=== PATIENT | female | born 1975 | race Caucasian/White ===

== ENCOUNTER 2017-02-04 15:59 | Emergency (ER) | payer OTHER ==
[~2017-02-04 15:59] MED LIST: ANAS1TAB3 PO; CITA20TA9 PO; HYDR-79 PO; HYDR12.58 PO; ONDA8TAB12 PO; PHEN15CA PO; PRED20TA PO; SUMA100T3 PO
[2017-02-04] MEDS ORDERED: IV NORMAL SALINE 1,000ML 1,000 ML IV ONE (16:35)
[2017-02-04] MEDS ORDERED: diphenhydrAMINE 50 MG/ML VIAL IVP ONE (16:35)
[2017-02-04] MEDS ORDERED: METOCLOPRAMIDE HCL 10 MG/2 ML VIAL. IV ONE (16:35)
[2017-02-04] MEDS ORDERED: PROCHLORPERAZINE 10 MG/2 ML VIAL. IV ONE (16:45)
--- NOTE | 2017-02-04 17:06 | PHYS DOC ---
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 Patient states her headache was present when she woke up about 45 minutes ago. "It's gone beyond Aleve and Benadryl". Patient states "it's hurting so bad". The pain is behind her left eye. This headache is like migraine headaches she has had before. She has had a headache this severe in the past. Sometimes she is able to take oral meds at home but she didn't even try because she felt that they wouldn't help in this instance. Patient states once she came in and they gave her Imitrex and she had to be admitted because of the side effects of Imitrex. She's had nausea , no vomiting. 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 Review of Systems Review of Systems Constitutional: Denies fever or chills [] Eyes: Pain behind the left eye but no visual disturbance HENT: Denies nasal congestion or sore throat [] Respiratory: Denies cough or shortness of breath [] Cardiovascular: Denies chest pain GI: As in history of present illness : Denies dysuria or hematuria [] Musculoskeletal: Denies back pain or joint pain [] Integument: Denies rash or skin lesions [] Neurologic: As in history of present illness, denies focal neurologic complaints Current Medications Current Medications Current Medications Medications (Trade) Dose Ordered Sig/Gerry Start Time Stop Time Status Last Admin Dose Admin Diphenhydramine HCl (Benadryl) 25 mg 1X ONCE 02/04/17 16:35 02/04/17 16:36 DC Metoclopramide HCl (Reglan) 10 mg 1X ONCE 02/04/17 16:35 02/04/17 16:36 DC Prochlorperazine Edisylate (Compazine) 10 mg 1X ONCE 02/04/17 16:45 02/04/17 16:46 DC Sodium Chloride 1,000 ml @ 1,000 mls/hr 1X ONCE 02/04/17 16:35 02/04/17 17:34 Allergies Allergies Allergies Coded Allergies Type Severity Reaction Last Updated Verified Cephalosporins Allergy Severe Anaphylaxis 01/31/15 No Penicillins Allergy Severe Shortness of Air 01/31/15 No Sulfa (Sulfonamide Antibiotics) Allergy Severe Anaphylaxis 01/31/15 No bupropion Allergy Mild Anxiety 01/31/15 No Physical Exam Physical Exam Constitutional: Well developed, well nourished, no acute distress, non-toxic appearance. Alert, mentating normally. HENT: Normocephalic, atraumatic, bilateral external ears normal, nose normal. [ ] Eyes: conjunctiva normal, no discharge. [] Neck: Normal range of motion, no stridor. [] Cardiovascular:Heart rate regular rhythm, no murmur [] Lungs & Thorax: Bilateral breath sounds clear to auscultation [] Abdomen: Bowel sounds normal, soft, no tenderness, no masses, no pulsatile masses. [] Skin: Warm, dry, no erythema, no rash. [] Extremities: No tenderness, no cyanosis, no clubbing, ROM intact, no edema. [] Neurologic: Alert and oriented X 3, normal motor function, normal sensory function, no focal deficits noted. Fish Warden 5 over 5 and equal bilaterally, lower extremity strength 5 over 5 and equal bilaterally. Current Patient Data Vital Signs Vital Signs Date Time Temp Pulse Resp B/P (MAP) Pulse Ox O2 Delivery O2 Flow Rate FiO2 02/04/17 16:05 98.2 76 16 98 Room Air EKG EKG [] Radiology/Procedures Radiology/Procedures [] Course & Med Decision Making Course & Med Decision Making Pertinent Labs and Imaging studies reviewed. (See chart for details) 41-year-old female with a history of migraines presents with typical migraine pain although more severe than she sometimes has. This is not her worst headache. The headache is not thunderclap in onset, it was present when she woke up from sleeping. Patient appears nontoxic. We discussed the options. She would like to try my suggestion of an IV "cocktail" of Reglan, Compazine, and Benadryl. Patient did not get much relief from the above medications. We then gave her 1 mg of IV hydromorphone and she was discharged with her driving to go home and sleep. See instructions for plan. [] Dragon Disclaimer Dragon Disclaimer This chart was dictated in whole or in part using Voice Recognition software in a busy, high-work load, and often noisy Emergency Department environment. It may contain unintended and wholly unrecognized errors or omissions. Departure Departure: Impression: Primary Impression: Migraine headache Disposition: 01 HOME, SELF-CARE Condition: IMPROVED Referrals: MAYITO LASSITER MD (PCP) Patient Instructions: Migraine Headache, [id number] Additional Instructions: Today in the emergency department, you had a liter of normal saline, Reglan 10 mg, Compazine 10 mg, and Benadryl 25 mg. Go home and go to bed in a dark quiet room, try to sleep all night. No driving for 12 hours due to the medications you were given. If needed, you may take your home medications including Percocet and/or Aleve if the headache is not gone. Follow-up with your PCP or in emergency if not better or if worse. CHELA MITCHELL MD Feb 04, 2017 17:06
[2017-02-04] MEDS ORDERED: HYDROmorphone PF 1 MG/ML DISP.SYRIN IV ONE (17:35)
[2017-02-04 17:45] VITALS: BP 126/58
== END 2017-02-04 17:45 | disposition home or self-care (01) ==
LOC: ER 15:59
DX: G43.909 Migraine, unspecified, not intractable, without status migrainosus (principal); I10 Essential (primary) hypertension; Z88.1 Allergy status to other antibiotic agents; Z88.0 Allergy status to penicillin; Z88.2 Allergy status to sulfonamides; Z88.8 Allergy status to other drugs, medicaments and biological substances
CPT/HCPCS: 96361; 96374; 96375; 99284; J0780; J1170; J1200; J2765; J7030

== ENCOUNTER 2017-04-19 15:34 | Emergency (ER) | payer OTHER ==
[~2017-04-19] VITALS: Ht 167.6 cm; Wt 81.6 kg
[~2017-04-19 15:34] MED LIST changes: -PHEN15CA PO; +PHEN15CA2 PO
--- NOTE | 2017-04-19 15:37 | PHYS DOC ---
Past History Past Medical History: Cancer, Hypertension, Migraines, Other Past Surgical History: Cancer Surgery, Hysterectomy, Knee Replacement Alcohol Use: None Drug Use: None Adult General Chief Complaint Chief Complaint: migraine headache HPI HPI Patient is a 41 year old female who presents with states her typical migraine headache. She states it started earlier today it started having some left side of her head and radiates around the back of her scalp. She states she feels nauseated but she hasn't vomited. She has tried Benadryl Phenergan at home and to leads. She also took 1000 g of Tylenol this was all about 2 hours ago. She states that she did get Botox in her headaches are getting less frequent she's opened that she gets her next round Botox that they even improve. She denies any fevers, confusion, neck stiffness. Review of Systems Review of Systems Constitutional: Denies fever or chills [] Eyes: Denies change in visual acuity, redness, or eye pain [] HENT: Denies nasal congestion or sore throat [] Respiratory: Denies cough or shortness of breath [] Cardiovascular: No additional information not addressed in HPI [] GI: Denies abdominal pain, nausea, vomiting, bloody stools or diarrhea [] : Denies dysuria or hematuria [] Musculoskeletal: Denies back pain or joint pain [] Integument: Denies rash or skin lesions [] Neurologic: Denies focal weakness or sensory changes, positive for]headache, Endocrine: Denies polyuria or polydipsia [] Allergies Allergies Allergies Coded Allergies Type Severity Reaction Last Updated Verified Cephalosporins Allergy Severe Anaphylaxis 01/31/15 No Penicillins Allergy Severe Shortness of Air 01/31/15 No Sulfa (Sulfonamide Antibiotics) Allergy Severe Anaphylaxis 01/31/15 No bupropion Allergy Mild Anxiety 01/31/15 No Physical Exam Physical Exam Constitutional: Well developed, well nourished, no acute distress, non-toxic appearance. [] HENT: Normocephalic, atraumatic, bilateral external ears normal, oropharynx moist, no oral exudates, nose normal. [] Eyes: PERRLA, EOMI, conjunctiva normal, no discharge. [] Neck: Normal range of motion, no tenderness, supple, no stridor. [] Cardiovascular:Heart rate regular rhythm, no murmur [] Lungs & Thorax: Bilateral breath sounds clear to auscultation [] Abdomen: Bowel sounds normal, soft, no tenderness, no masses, no pulsatile masses. [] Skin: Warm, dry, no erythema, no rash. [] Back: No tenderness, no CVA tenderness. [] Extremities: No tenderness, no cyanosis, no clubbing, ROM intact, no edema. [] Neurologic: Alert and oriented X 3, normal motor function, normal sensory function, no focal deficits noted. [] Psychologic: Affect normal, judgement normal, mood normal. [] EKG EKG [] Radiology/Procedures Radiology/Procedures [] Impressions: Migraine headache Course & Med Decision Making Course & Med Decision Making Pertinent Labs and Imaging studies reviewed. (See chart for details) Patient received IV fluids and IV migraine cocktail and feels better now. She is requesting be discharged home. Return precautions given. She is agreeable to the plan and being discharged in stable condition at this time. Dragon Disclaimer Dragon Disclaimer This chart was dictated in whole or in part using Voice Recognition software in a busy, high-work load, and often noisy Emergency Department environment. It may contain unintended and wholly unrecognized errors or omissions. Departure Departure: Impression: Primary Impression: Migraine headache Disposition: 01 HOME, SELF-CARE Condition: STABLE Referrals: MAYITO LASSITER MD (PCP) Patient Instructions: Migraine Headache Additional Instructions: You were seen tonight for your migraine headache. You received IV fluids, IV medicines and you now feeling better. Your being discharged home. You can continue taking [id number] remedies. The sure to push fluids tonight. Return ER for worsening headache, confusion, neck stiffness, or other concerns. Problem Qualifiers Primary Impression: Migraine headache Migraine type: unspecified Status migrainosus presence: without status migrainosus Intractability: not intractable Qualified Codes: G43.909 - Migraine, unspecified, not intractable, without status migrainosus SURESH CLEMONS MD Apr 19, 2017 15:37
[2017-04-19] MEDS ORDERED: IV NORMAL SALINE 50ML 50 ML ONE (15:58)
[2017-04-19] MEDS ORDERED: PROMETHAZINE 25 MG/ML VIAL IV ONE (15:58)
[2017-04-19] MEDS ORDERED: PROMETHAZINE 12.5 MG in IV NORMAL SALINE 50ML 50 ML IV PRN (16:00)
[2017-04-19] MEDS ORDERED: IV NORMAL SALINE 1,000ML 1,000 ML IV ONE (16:00)
[2017-04-19] MEDS ORDERED: diphenhydrAMINE 50 MG/ML VIAL IVP ONE (16:00)
[2017-04-19] MEDS ORDERED: KETOROLAC 30 MG/ML VIAL. IV ONE (16:00)
[2017-04-19 17:28] VITALS: BP 122/78
== END 2017-04-19 17:37 | disposition home or self-care (01) ==
LOC: ER 15:34
DX: G43.909 Migraine, unspecified, not intractable, without status migrainosus (principal); I10 Essential (primary) hypertension; Z88.1 Allergy status to other antibiotic agents; Z88.0 Allergy status to penicillin; Z88.2 Allergy status to sulfonamides; Z88.8 Allergy status to other drugs, medicaments and biological substances
CPT/HCPCS: 96365; 96375; 99284; J1200; J1885; J2550; J7030

== ENCOUNTER 2017-05-10 23:10 | Emergency (ER) | payer OTHER ==
[~2017-05-10] VITALS: Ht 167.6 cm; Wt 84.7 kg
[2017-05-10] MEDS ORDERED: KETOROLAC 30 MG/ML VIAL. IV ONE (23:45)
[2017-05-10] MEDS ORDERED: METOCLOPRAMIDE HCL 10 MG/2 ML VIAL. IV ONE (23:45)
[2017-05-10] MEDS ORDERED: diphenhydrAMINE 50 MG/ML VIAL IVP ONE (23:45)
[2017-05-11] MEDS ORDERED: IV NORMAL SALINE 1,000ML 1,000 ML IV ONE
[2017-05-11] MEDS ORDERED: PROCHLORPERAZINE 10 MG/2 ML VIAL. IV ONE (00:45)
[2017-05-11] MEDS ORDERED: PROCHLORPERAZINE 10 MG/2 ML VIAL. ONE (00:48)
[2017-05-11 00:52] VITALS: BP 107/60
--- NOTE | 2017-05-11 04:34 | ED.ADGEN ---
Past History Past Medical History: Cancer, Diabetes, Hypertension, Migraines Past Surgical History: Hysterectomy, Other Alcohol Use: None Drug Use: None Adult General Chief Complaint Chief Complaint Migraine headache HPI HPI Patient is a 41-year-old female and history of frequent migraine headaches who presents with typical migraine headache starting several hours prior to ED arrival. Headache is described as left retro-orbital R, throbbing, rated moderate to severe and associated with nausea and vomiting. Patient took Advil and Tylenol prior to ED arrival with limited improvement. States she sees a neurologist and is scheduled for Botox. Last migraine was 2 weeks ago. Patient was seen in this same in the emergency department at that time. No fever, neck pain, stiffness, rash, extremity weakness or loss of sensation. No other acute symptoms or complaints.[] Review of Systems Review of Systems Review symptoms as per history of present illness. All other review symptoms are negative. Current Medications Current Medications Current Medications Medications (Trade) Dose Ordered Sig/Gerry Start Time Stop Time Status Last Admin Dose Admin Diphenhydramine HCl (Benadryl) 25 mg 1X ONCE 05/10/17 23:45 05/10/17 23:47 DC 05/10/17 23:51 25 MG Ketorolac Tromethamine (Toradol) 30 mg 1X ONCE 05/10/17 23:45 05/10/17 23:47 DC 05/10/17 23:52 30 MG Metoclopramide HCl (Reglan) 10 mg 1X ONCE 05/10/17 23:45 05/10/17 23:47 DC 05/10/17 23:52 10 MG Prochlorperazine Edisylate (Compazine) 10 mg STK-MED ONCE 05/11/17 00:48 05/11/17 00:57 DC Sodium Chloride 1,000 ml @ 1,000 mls/hr 1X ONCE 05/11/17 00:00 05/11/17 00:57 DC 05/10/17 23:52 1,000 MLS/HR Allergies Allergies Allergies Coded Allergies Type Severity Reaction Last Updated Verified Cephalosporins Allergy Severe Anaphylaxis 04/19/17 No Penicillins Allergy Severe Shortness of Air 04/19/17 No Sulfa (Sulfonamide Antibiotics) Allergy Severe Anaphylaxis 04/19/17 No bupropion Allergy Mild Anxiety 04/19/17 No sumatriptan Allergy Unknown 04/19/17 Yes Physical Exam Physical Exam Constitutional: Well developed, well nourished, no acute distress, non-toxic appearance. [] HENT: Normocephalic, atraumatic, bilateral external ears normal, oropharynx moist, no oral exudates, nose normal. [] Eyes: PERRLA, EOMI, conjunctiva normal, no discharge. [] Extremities: No tenderness, no cyanosis, no clubbing, ROM intact, no edema. [] Neurologic: Alert and oriented X 3, normal motor function, normal sensory function, no focal deficits noted. [] Psychologic: Affect normal, judgement normal, mood normal. [] Current Patient Data Vital Signs Vital Signs Date Time Temp Pulse Resp B/P (MAP) Pulse Ox O2 Delivery O2 Flow Rate FiO2 05/11/17 00:52 70 16 107/60 (76) 98 Room Air 05/10/17 23:10 98.1 EKG EKG [] Radiology/Procedures Radiology/Procedures [] Course & Med Decision Making Course & Med Decision Making Pertinent Labs and Imaging studies reviewed. (See chart for details) [No neurologic deficits. Typical migraine cocktail given with significant relief of symptoms.] Final Impression Final Impression [#1 migraine headache] Problems: Dragon Disclaimer Dragon Disclaimer This electronic medical record was generated, in whole or in part, using a voice recognition dictation system. MIREYA BARTON DO May 11, 2017 04:34
== END 2017-05-11 00:57 | disposition home or self-care (01) ==
LOC: ER 23:10
DX: G43.909 Migraine, unspecified, not intractable, without status migrainosus (principal); I10 Essential (primary) hypertension; E11.9 Type 2 diabetes mellitus without complications; Z88.1 Allergy status to other antibiotic agents; Z88.0 Allergy status to penicillin; Z88.2 Allergy status to sulfonamides; Z88.8 Allergy status to other drugs, medicaments and biological substances
CPT/HCPCS: 96361; 96374; 96375; 99284; J0780; J1200; J1885; J2765; J7030

== ENCOUNTER → 2017-05-22 | Outpatient (CLI) | payer OTHER ==
[2017-05-11 00:52] VITALS: BP 107/60
--- NOTE | 2017-05-22 11:36 | RAD ---
Indication: Right upper quadrant pain. Technique: Right upper quadrant ultrasound was performed. No comparison is available. Findings: Pancreas is obscured by bowel gas. IVC is patent. Aorta is obscured by bowel gas. There is diffuse increase in echogenicity of the liver without discrete lesion. Right hepatic lobe measures 15.0 cm in length. Gallbladder wall is thickened. There is no pericholecystic fluid or definite stone. Common bile duct is within normal limits at 2 mm. Right kidney is without hydronephrosis or mass. Impression: 1. Fatty infiltration of the liver. 2. Nonspecific gallbladder wall thickening. If there is concern for acalculous/chronic cholecystitis, consider hepatobiliary scintigraphy with ejection fraction.
== END | disposition home or self-care (01) ==
LOC: US 08:00
PROVIDERS: ATTEND Family Medicine
DX: K76.0 Fatty (change of) liver, not elsewhere classified (principal)
CPT/HCPCS: 76705

== ENCOUNTER 2018-08-19 07:12 | Emergency (ER) | payer OTHER ==
[~2018-08-19] VITALS: Ht 167.6 cm; Wt 81.6 kg
[~2018-08-19 07:12] MED LIST changes: -ANAS1TAB3 PO; +ANAS1TAB47 PO; +HYDR-1179 PO; -HYDR-79 PO
[2018-08-19 07:15] VITALS: BP 175/92
[2018-08-19] MEDS ORDERED: IV NORMAL SALINE 1,000ML 1,000 ML IV SCH (07:27)
[2018-08-19] MEDS ORDERED: KETOROLAC 30 MG/ML VIAL. IV ONE (07:45)
[2018-08-19] MEDS ORDERED: ONDANSETRON PF 4 MG/2 ML VIAL. IV ONE (07:45)
[2018-08-19] MEDS ORDERED: diphenhydrAMINE 50 MG/ML VIAL IVP ONE (07:45)
--- NOTE | 2018-08-19 07:51 | PHYS DOC ---
Past History Past Medical History: Cancer, Diabetes, Hypertension, Migraines Past Surgical History: Hysterectomy, Other Smoking: Non-smoker Alcohol Use: None Drug Use: None Adult General Chief Complaint Chief Complaint: HEADACHE HPI HPI Patient is a 42 year old female with history of migraine headache who presents with complaining of headache. Patient complaining of posterior headache since 1800 yesterday as a sharp pain with nausea and photophobia that getting suddenly severe for the last an hour. Patient state he took [id number] Tylenol without change of her pain. Patient states this is not like her usual migraine headache as a with radiation to her neck. She denies fever and chills, chest pain, shortness of breath, vomiting and abdominal pain, focal neuro deficit. Review of Systems Review of Systems Constitutional: Denies fever or chills [] Eyes: Denies change in visual acuity, redness, or eye pain [] HENT: Denies nasal congestion or sore throat [] Respiratory: Denies cough or shortness of breath [] Cardiovascular: No additional information not addressed in HPI [] GI: Denies abdominal pain, vomiting, bloody stools or diarrhea , reports nausea[ ] : Denies dysuria or hematuria [] Musculoskeletal: Denies back pain or joint pain [] Integument: Denies rash or skin lesions [] Neurologic: reports headache, denies focal weakness or sensory changes [] Endocrine: Denies polyuria or polydipsia [] All other systems were reviewed and found to be within normal limits, except as documented in this note. Current Medications Current Medications Current Medications Medications (Trade) Dose Ordered Sig/Gerry Start Time Stop Time Status Last Admin Dose Admin Diphenhydramine HCl (Benadryl) 50 mg 1X ONCE 08/19/18 07:45 08/19/18 07:46 DC Ketorolac Tromethamine (Toradol 30mg Vial) 30 mg 1X ONCE 08/19/18 07:45 08/19/18 07:46 DC Ondansetron HCl (Zofran) 4 mg 1X ONCE 08/19/18 07:45 08/19/18 07:46 DC Sodium Chloride 1,000 ml @ 1,000 mls/hr Q1H 08/19/18 07:27 08/19/18 08:26 Allergies Allergies Allergies Coded Allergies Type Severity Reaction Last Updated Verified Cephalosporins Allergy Severe Anaphylaxis 04/19/17 No Penicillins Allergy Severe Shortness of Air 04/19/17 No Sulfa (Sulfonamide Antibiotics) Allergy Severe Anaphylaxis 04/19/17 No bupropion Allergy Mild Anxiety 04/19/17 No sumatriptan Allergy Unknown 04/19/17 Yes Physical Exam Physical Exam Constitutional: Well developed, well nourished, moderate acute distress, non- toxic appearance. [] HENT: Normocephalic, atraumatic, bilateral external ears normal, oropharynx moist, no oral exudates, nose normal. [] Eyes: PERRLA, EOMI, conjunctiva normal, no discharge. [] Neck: Normal range of motion, no tenderness, supple, no stridor. [] Cardiovascular:Heart rate regular rhythm, no murmur [] Lungs & Thorax: Bilateral breath sounds clear to auscultation [] Abdomen: Bowel sounds normal, soft, no tenderness, no masses, no pulsatile masses. [] Skin: Warm, dry, no erythema, no rash. [] Back: No tenderness, no CVA tenderness. [] Extremities: No tenderness, no cyanosis, no clubbing, ROM intact, no edema. [] Neurologic: Alert and oriented X 3, normal motor function, normal sensory function, no focal deficits noted. [] Psychologic: Affect anxious, crying, judgement normal, mood normal. [] EKG EKG [] Radiology/Procedures Radiology/Procedures [] Course & Med Decision Making Course & Med Decision Making Pertinent Labs reviewed. (See chart for details) Evaluation of patient in ER showed 42-year-old female patient with history of migraine headache presented with severe migraine headache since yesterday. Patient had no neck rigidity and treated with IV fluid, Benadryl, throat of, Solu-Medrol and Zofran and her pain dropped from 10 to 5. Patient feels comfortable to go home and follow up with her physician. Patient has Zofran at home and prescription for Fiorinal was given. Dragon Disclaimer Dragon Disclaimer This electronic medical record was generated, in whole or in part, using a voice recognition dictation system. Departure Departure: Impression: Primary Impression: Migraine headache Additional Impressions: Nausea Photophobia Disposition: HOME, SELF-CARE (at 0912) Condition: IMPROVED Referrals: MAYITO LASSITER MD (PCP) Patient Instructions: Migraine Headache Additional Instructions: Drink plenty of liquids Follow-up with your primary care physician in 3-5 days Return to ER if not getting better Scripts Butalbital/Aspirin/Caffeine (FIORINAL 50-325-40 MG CAPSULE) 1 Each Capsule 1 EACH PO QID PRN for HEADACHE, #14 CAP Prov: PADMAJA BLAKE MD 08/19/18 Problem Qualifiers PADMAJA BLAKE MD Aug 19, 2018 07:51
[2018-08-19 08:15] LABS: BASO # 0.2 x10^3/uL (0.0-0.2); BASO % 2 % (0-3); EOS # 0.3 x10^3/uL (0.0-0.7); EOS % 3 % (0-3); HEMATOCRIT 41.6 % (36.0-47.0); LYMPH # 4.9 x10^3/uL (1.0-4.8); LYMPH % 47 % (24-48); MEAN CORPUSCULAR HEMOGLOBIN 30 pg (25-35); MEAN CORPUSCULAR HGB CONC 34 g/dL (31-37); MEAN CORPUSCULAR VOLUME 90 fL (79-100); MONO # 0.6 x10^3/uL (0.0-1.1); MONO % 6 % (0-9); NEUT # 4.5 x10^3uL (1.8-7.7); NEUT % 43 % (31-73); PLATELET COUNT 371 x10^3/uL (140-400); RED BLOOD COUNT 4.63 x10^6/uL (3.50-5.40); RED CELL DISTRIBUTION WIDTH 13.1 % (11.5-14.5); WHITE BLOOD COUNT 10.5 x10^3/uL (4.0-11.0)
[2018-08-19 08:26] LABS: CALCIUM 9.3 mg/dL (8.5-10.1); CREATININE 0.6 mg/dL (0.6-1.0); GFR 110.7; POTASSIUM 3.6 mmol/L (3.5-5.1)
[2018-08-19] MEDS ORDERED: methylPREDNISolone SOD SUCC PF 125 MG/2 ML VIAL. IV ONE (08:30)
[2018-08-19] MEDS ORDERED: BUTA1CAP31 PO (09:15)
== END 2018-08-19 08:00 | disposition home or self-care (01) ==
LOC: ER 07:12
DX: G43.909 Migraine, unspecified, not intractable, without status migrainosus (principal); E11.9 Type 2 diabetes mellitus without complications; I10 Essential (primary) hypertension; Z88.1 Allergy status to other antibiotic agents; Z88.0 Allergy status to penicillin; Z88.2 Allergy status to sulfonamides; Z88.8 Allergy status to other drugs, medicaments and biological substances
CPT/HCPCS: 36415; 80048; 85025; 96374; 96375; 99283; G0480; J1200; J1885; J2405; J2930; J7030

== ENCOUNTER → 2018-09-12 | Outpatient (CLI) | payer OTHER ==
[2018-08-19 07:15] VITALS: BP 175/92
[~2018-09-12] MED LIST changes: +BUTA1CAP31 PO; +MELO7.5T29 PO; +METO10TA81 PO
[2018-09-12 09:00] LABS: HEMATOCRIT 40.1 % (36.0-47.0); HEMOGLOBIN 13.7 g/dL (12.0-15.5); RED BLOOD COUNT 4.43 x10^6/uL (3.50-5.40); RED CELL DISTRIBUTION WIDTH 13.3 % (11.5-14.5); WHITE BLOOD COUNT 9.1 x10^3/uL (4.0-11.0)
[2018-09-12 09:21] LABS: ALBUMIN 3.6 g/dL (3.4-5.0); ALBUMIN/GLOBULIN RATIO 1.2 (1.0-1.7); CALCIUM 8.9 mg/dL (8.5-10.1); CREATININE 0.7 mg/dL (0.6-1.0); GFR 92.7; POTASSIUM 3.6 mmol/L (3.5-5.1); TOTAL BILIRUBIN 0.2 mg/dL (0.2-1.0); TOTAL PROTEIN 6.7 g/dL (6.4-8.2)
[2018-09-12 20:42] LABS: THYROID STIM HORMONE (TSH) 1.706 uIU/mL (0.358-3.740)
== END | disposition home or self-care (01) ==
LOC: LAB 08:13
PROVIDERS: ATTEND Family Medicine
DX: I10 Essential (primary) hypertension (principal); E78.2 Mixed hyperlipidemia; E11.9 Type 2 diabetes mellitus without complications
CPT/HCPCS: 36415; 80053; 80061; 82043; 83036; 84443; 85027

== ENCOUNTER 2018-12-18 07:11 | Emergency (ER) | payer OTHER ==
[~2018-12-18] VITALS: Ht 167.6 cm; Wt 79.4 kg
[~2018-12-18 07:11] MED LIST changes: -MELO7.5T29 PO; -METO10TA81 PO
[2018-12-18 07:20] VITALS: BP 122/95
[2018-12-18] MEDS ORDERED: KETOROLAC 15 MG/ML VIAL. IV ONE (07:30)
[2018-12-18] MEDS ORDERED: diphenhydrAMINE 50 MG/ML VIAL IVP ONE (07:30)
[2018-12-18] MEDS ORDERED: METOCLOPRAMIDE HCL 10 MG/2 ML VIAL. IV ONE (07:30)
--- NOTE | 2018-12-18 07:38 | PHYS DOC ---
Past History Past Medical History: Cancer, Diabetes, Hypertension, Migraines Past Surgical History: Hysterectomy, Other Smoking: Non-smoker Alcohol Use: None Drug Use: None Adult General Chief Complaint Chief Complaint: HEADACHE HPI HPI Patient is a 43 year old female presents complaining of a headache over her left eye. This is her usual migraine. This started last night. She has photophobia and phonophobia. Some nausea, no vomiting. Not worst headache of life. No fever. No neck stiffness or vision changes. She tried to make it home from working an overnight shift but was unable to make it home due to the discomfort. Sleep usually works for the discomfort along with antiemetics and IV NSAIDs.[] Review of Systems Review of Systems Constitutional: Denies fever or chills [] Eyes: Denies change in visual acuity, redness, or eye pain [] HENT: Denies nasal congestion or sore throat [] Respiratory: Denies cough or shortness of breath [] Cardiovascular: No chest pain or palpitations[] GI: Denies abdominal pain, nausea, vomiting, bloody stools or diarrhea [] : Denies dysuria or hematuria [] Musculoskeletal: Denies back pain or joint pain [] Integument: Denies rash or skin lesions [] Neurologic: Denies focal weakness or sensory changes [] Endocrine: Denies polyuria or polydipsia [] All other systems were reviewed and found to be within normal limits, except as documented in this note. Current Medications Current Medications Current Medications Medications (Trade) Dose Ordered Sig/Gerry Start Time Stop Time Status Last Admin Dose Admin Diphenhydramine HCl (Benadryl) 50 mg 1X ONCE 12/18/18 07:30 12/18/18 07:31 UNV Allergies Allergies Allergies Coded Allergies Type Severity Reaction Last Updated Verified Cephalosporins Allergy Severe Anaphylaxis 04/19/17 No Penicillins Allergy Severe Shortness of Air 04/19/17 No Sulfa (Sulfonamide Antibiotics) Allergy Severe Anaphylaxis 04/19/17 No bupropion Allergy Mild Anxiety 04/19/17 No sumatriptan Allergy Unknown 04/19/17 Yes Physical Exam Physical Exam Constitutional: Well developed, well nourished, mild to moderate discomfort, non-toxic appearance. [] HENT: Normocephalic, atraumatic, bilateral external ears normal, oropharynx moist, no oral exudates, nose normal. [] Eyes: PERRLA, EOMI, conjunctiva normal, no discharge. [] Neck: Normal range of motion, no tenderness, supple, no stridor. [] Cardiovascular:Heart rate regular rhythm, no murmur [] Lungs & Thorax: Bilateral breath sounds clear to auscultation [] Abdomen: Not examined. [] Skin: Warm, dry, no erythema, no rash. [] Back: No tenderness, no CVA tenderness. [] Extremities: No tenderness, no cyanosis, no clubbing, ROM intact, no edema. [] Neurologic: Alert and oriented X 3, normal motor function, normal sensory function, no focal deficits noted. [] Psychologic: Affect normal, judgement normal, mood normal. [] EKG EKG [] Radiology/Procedures Radiology/Procedures [] Course & Med Decision Making Course & Med Decision Making Pertinent Labs and Imaging studies reviewed. (See chart for details) ED course: Patient arrived, was placed in bed, and tolerated exam well. She was given medication which had her resting much more comfortably. She was discharged in improved condition with all questions answered. Medical decision making: There is no evidence of stroke, meningitis, encephalitis, no evidence of mass or bleed.[] Dragon Disclaimer Dragon Disclaimer This electronic medical record was generated, in whole or in part, using a voice recognition dictation system. Departure Departure: Impression: Primary Impression: Migraine Disposition: 01 HOME, SELF-CARE Condition: IMPROVED Referrals: MAYITO LASSITER MD (PCP) Follow-up in 2 days Patient Instructions: Migraine Headache Additional Instructions: Follow-up with your regular physician in 2 days. At the onset of your neck migraine headache try using 1/4 teaspoon of steve dissolved in either water or apple juice. Return to the ER if worsening discomfort or any other concerns. Scripts Metoclopramide Hcl (REGLAN) 10 Mg Tablet 10 MG PO QID for nausea and vomiting, #30 TAB Prov: YANIRA HANNA DO 12/18/18 Meloxicam (MELOXICAM) 7.5 Mg Tablet 7.5 MG PO DAILY for PAIN, #20 TAB Prov: YANIRA HANNA DO 12/18/18 Problem Qualifiers Primary Impression: Migraine Migraine type: unspecified Status migrainosus presence: without status migrainosus Intractability: not intractable Qualified Codes: G43.909 - Migraine, unspecified, not intractable, without status migrainosus YANIRA HANNA DO Dec 18, 2018 07:38
[2018-12-18] MEDS ORDERED: MELO7.5T29 PO (08:17)
[2018-12-18] MEDS ORDERED: METO10TA81 PO (08:17)
== END 2018-12-18 08:45 | disposition home or self-care (01) ==
LOC: ER 07:11
DX: G43.909 Migraine, unspecified, not intractable, without status migrainosus (principal); E11.9 Type 2 diabetes mellitus without complications; I10 Essential (primary) hypertension; Z88.1 Allergy status to other antibiotic agents; Z88.0 Allergy status to penicillin; Z88.2 Allergy status to sulfonamides; Z88.8 Allergy status to other drugs, medicaments and biological substances
CPT/HCPCS: 96374; 96375; 99284; J1200; J1885; J2765

== ENCOUNTER 2019-02-02 21:21 | Emergency (ER) | payer OTHER ==
[~2019-02-02] VITALS: Ht 167.6 cm; Wt 84.7 kg
[~2019-02-02 21:21] MED LIST changes: +MELO7.5T29 PO; +METO10TA81 PO
--- NOTE | 2019-02-02 21:31 | ED.ADGEN ---
Past History Past Medical History: Cancer, Diabetes, Hypertension, Migraines Past Surgical History: Hysterectomy, Other Smoking: Non-smoker Alcohol Use: None Drug Use: None Adult General Chief Complaint Chief Complaint ".. I am on vacation.. I don't know what going. ...on I got dizzy.. hot .. and sweaty....".." I did work a full shift last night... 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 Pt. does have one previous episode in past with similar presentation. Patient has a history of diabetes, hypertension and cholesterol, breast cancer with bilateral mastectomy in 2016. Patient denies any specific ill contacts. Recent travel to [place] on vacation. . No history of trauma. Patient compliant with medications. No history of bad food intake. No history of tarry stools. Patient normally follows with Dr. Hicks and Dr. Bailey. Review of Systems Review of Systems Constitutional: Denies fever or chills [] Eyes: Denies change in visual acuity, redness, or eye pain [] HENT: Denies nasal congestion or sore throat [] Respiratory: Denies cough or shortness of breath [] Cardiovascular: No additional information not addressed in HPI [] GI: Denies abdominal pain, , vomiting, bloody stools or diarrhea []Some complaints of nausea. : Denies dysuria or hematuria [] Musculoskeletal: Denies back pain or joint pain [] Integument: Denies rash or skin lesions [] Neurologic: Denies headache, focal weakness or sensory changes. Complaints of []dizzy Endocrine: Denies polyuria or polydipsia [] All other systems were reviewed and found to be within normal limits, except as documented in this note. Family History Family History Noncontributory Current Medications Current Medications Current Medications Medications (Trade) Dose Ordered Sig/Gerry Start Time Stop Time Status Last Admin Dose Admin Ondansetron HCl (Zofran) 8 mg 1X ONCE 02/02/19 22:00 02/02/19 22:04 DC 02/02/19 22:57 8 MG Sodium Chloride 1,000 ml @ 100 mls/hr Q10H 02/02/19 22:00 02/03/19 01:43 DC 02/02/19 22:56 100 MLS/HR Allergies Allergies Allergies Coded Allergies Type Severity Reaction Last Updated Verified Cephalosporins Allergy Severe Anaphylaxis 04/19/17 No Penicillins Allergy Severe Shortness of Air 04/19/17 No Sulfa (Sulfonamide Antibiotics) Allergy Severe Anaphylaxis 04/19/17 No bupropion Allergy Mild Anxiety 04/19/17 No sumatriptan Allergy Unknown 04/19/17 Yes Physical Exam Physical Exam Constitutional: Moderate acute distress, non-toxic appearance. [] HENT: Normocephalic, atraumatic, bilateral external ears normal, oropharynx moist, no oral exudates, nose normal. [] Eyes: PERRLA, EOMI, conjunctiva normal, no discharge. [] Neck: Normal range of motion, no tenderness, supple, no stridor. [] No bruit. Cardiovascular:Heart rate regular rhythm, no murmur [] Lungs & Thorax: Bilateral breath sounds equal apex on auscultation []bilateral mastectomy scars Abdomen: Bowel sounds normal, soft, no tenderness, no masses, no pulsatile masses. [] Surgery scars cholecystectomy and hysterectomy Skin: Warm, dry, no erythema, no rash. [] Tattoos Back: No tenderness, no CVA tenderness. [] Extremities: No tenderness, no cyanosis, no clubbing, ROM intact, no edema. [] Neurologic: Alert and oriented X 3, normal motor function, normal sensory function, no focal deficits noted. []DTRs +2 patella and brachial. 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 No drift. Distal vibratory intact. Air-conduction more than bone conduction some slight lateralization on bone conduction to left ear. Pt. ambulatory without problems. Psychologic: Affect anxious, judgement normal, mood normal. [] Current Patient Data Vital Signs Vital Signs Date Time Temp Pulse Resp B/P (MAP) Pulse Ox O2 Delivery O2 Flow Rate FiO2 02/03/19 00:55 64 20 119/70 (86) 99 Room Air 02/02/19 21:30 98.3 Lab Results Laboratory Tests Test 02/02/19 21:30 02/02/19 22:15 Urine Collection Type Unknown Urine Color Yellow Urine Clarity Clear Urine pH 7.0 Urine Specific Hildreth 1.010 Urine Protein Neg (NEG-TRACE) Urine Glucose (UA) Neg mg/dL (NEG) Urine Ketones (Stick) Neg mg/dL (NEG) Urine Blood Small (NEG) Urine Nitrite Neg (NEG) Urine Bilirubin Neg (NEG) Urine Urobilinogen Dipstick 0.2 mg/dL (0.2 mg/dL) Urine Leukocyte Esterase Neg (NEG) Urine RBC 1-2 /HPF (0-2) Urine WBC Occ /HPF (0-4) Urine Squamous Epithelial Cells Occ /LPF Urine Bacteria 0 /HPF (0-FEW) Urine Opiates Screen Neg (NEG) Urine Methadone Screen Neg (NEG) Urine Barbiturates Neg (NEG) Urine Phencyclidine Screen Neg (NEG) Urine Amphetamine/Methamphetamine Neg (NEG) Urine Benzodiazepines Screen Neg (NEG) Urine Cocaine Screen Neg (NEG) Urine Cannabinoids Screen Neg (NEG) Urine Ethyl Alcohol Neg (NEG) White Blood Count 14.3 x10^3/uL (4.0-11.0) H Red Blood Count 4.60 x10^6/uL (3.50-5.40) Hemoglobin 14.3 g/dL (12.0-15.5) Hematocrit 42.9 % (36.0-47.0) Mean Corpuscular Volume 93 fL (79-100) Mean Corpuscular Hemoglobin 31 pg (25-35) Mean Corpuscular Hemoglobin Concent 33 g/dL (31-37) Red Cell Distribution Width 13.0 % (11.5-14.5) Platelet Count 370 x10^3/uL (140-400) Neutrophils (%) (Auto) 69 % (31-73) Lymphocytes (%) (Auto) 25 % (24-48) Monocytes (%) (Auto) 5 % (0-9) Eosinophils (%) (Auto) 0 % (0-3) Basophils (%) (Auto) 0 % (0-3) Neutrophils # (Auto) 9.9 x10^3uL (1.8-7.7) H Lymphocytes # (Auto) 3.6 x10^3/uL (1.0-4.8) Monocytes # (Auto) 0.7 x10^3/uL (0.0-1.1) Eosinophils # (Auto) 0.1 x10^3/uL (0.0-0.7) Basophils # (Auto) 0.1 x10^3/uL (0.0-0.2) Erythrocyte Sedimentation Rate 11 (0-25) Prothrombin Time 9.4 SEC (9.4-11.4) Prothrombin Time INR 0.9 (0.9-1.1) PTT 27 SEC (23-33) D-Dimer (Ileana) < 0.19 mg/L (0.00-0.50) Sodium Level 140 mmol/L (136-145) Potassium Level 3.9 mmol/L (3.5-5.1) Chloride Level 99 mmol/L (98-107) Carbon Dioxide Level 29 mmol/L (21-32) Anion Gap 12 (6-14) Blood Urea Nitrogen 5 mg/dL (7-20) L Creatinine 0.7 mg/dL (0.6-1.0) Estimated GFR (Cockcroft-Gault) 92.2 Glucose Level 108 mg/dL (70-99) H Calcium Level 10.1 mg/dL (8.5-10.1) Magnesium Level 1.9 mg/dL (1.8-2.4) Total Bilirubin 0.3 mg/dL (0.2-1.0) Direct Bilirubin 0.1 mg/dL (0.0-0.2) Aspartate Amino Transferase (AST) 15 U/L (15-37) Alanine Aminotransferase (ALT) 25 U/L (14-59) Alkaline Phosphatase 104 U/L (46-116) Creatine Kinase 60 U/L (26-192) Troponin I Quantitative < 0.017 ng/mL (0-0.055) HM-Sqd-S-Type Natriuretic Peptide 38 pg/mL (0-124) Total Protein 7.3 g/dL (6.4-8.2) Albumin 4.2 g/dL (3.4-5.0) Lipase 76 U/L (73-393) EKG EKG My interpretation EKG shows a sinus rhythm at 64. Some axis deviation and anterior septal changes. No findings acute STEMI of contralateral changes.[] Radiology/Procedures Radiology/Procedures [][address] [address] IMAGING REPORT Signed PATIENT: TAI HAUSER ACCOUNT: [id number] : 1975 LOCATION: ER AGE: 43 SEX: F EXAM STATUS: REG ER ORD. PHYSICIAN: OLAYINKA HEREDIA MD REASON: dizzy PROCEDURE: CT HEAD WO CONTRAST EXAM: CT Head without IV contrast CLINICAL HISTORY: Dizziness COMPARISON: 08/27/2016 TECHNIQUE: Routine CT of the head without contrast. Soft tissues and bone windows were reviewed. PQRS compliance statement - One or more of the following individualized dose reduction techniques were utilized for this study: 1. Automated exposure control 2. Adjustment of the mA and/or kV according to patient size 3. Use of iterative reconstruction technique FINDINGS: There is no evidence of hemorrhage, mass or extra-axial fluid collection. Galvin-white differentiation is maintained with no evidence of edema. There is no mass effect or shift of the intracranial structures. The ventricles, basilar cisterns and cortical sulci are normal in size and configuration for the patients stated age. The cerebellum and brainstem are unremarkable. The calvarium demonstrates no evidence of fracture or focal lesion. There is normal aeration of the visualized paranasal sinuses and mastoid air cells. The visualized portions of the orbits are normal. IMPRESSION: No evidence for acute intracranial process. Electronically signed by: Beto Power MD (02/02/2019 11:12 PM) [facility] DICTATED AND SIGNED BY: BETO POWER MD DATE: 02/02/19 3705 CC: OLAYINKA HEREDIA MD; MAYITO HICKS MD ~ Course & Med Decision Making Course & Med Decision Making Pertinent Labs and Imaging studies reviewed. (See chart for details) Pt. elects not to be admitted. States will follow up with primary. Declines spinal tap. Exhibit UCAR capacity. Seem aware of risks. Must follow up. [] Final Impression Final Impression 1. Dizzy[] 2. Leukocytosis 3. Migraine Variant 4. DM Dragon Disclaimer Dragon Disclaimer This electronic medical record was generated, in whole or in part, using a voice recognition dictation system. Discharge Summary Visit Information Final Diagnosis Problems Medical Problems: (1) Dizzy Status: Acute Brief Hospital Course Allergies Allergies Coded Allergies Type Severity Reaction Last Updated Verified Cephalosporins Allergy Severe Anaphylaxis 04/19/17 No Penicillins Allergy Severe Shortness of Air 04/19/17 No Sulfa (Sulfonamide Antibiotics) Allergy Severe Anaphylaxis 04/19/17 No bupropion Allergy Mild Anxiety 04/19/17 No sumatriptan Allergy Unknown 04/19/17 Yes Vital Signs Vital Signs Date Time Temp Pulse Resp B/P (MAP) Pulse Ox O2 Delivery O2 Flow Rate FiO2 02/03/19 00:55 64 20 119/70 (86) 99 Room Air 02/02/19 21:30 98.3 Lab Results Laboratory Tests Test 02/02/19 21:30 02/02/19 22:15 Urine Collection Type Unknown Urine Color Yellow Urine Clarity Clear Urine pH 7.0 Urine Specific Hildreth 1.010 Urine Protein Neg (NEG-TRACE) Urine Glucose (UA) Neg mg/dL (NEG) Urine Ketones (Stick) Neg mg/dL (NEG) Urine Blood Small (NEG) Urine Nitrite Neg (NEG) Urine Bilirubin Neg (NEG) Urine Urobilinogen Dipstick 0.2 mg/dL (0.2 mg/dL) Urine Leukocyte Esterase Neg (NEG) Urine RBC 1-2 /HPF (0-2) Urine WBC Occ /HPF (0-4) Urine Squamous Epithelial Cells Occ /LPF Urine Bacteria 0 /HPF (0-FEW) Urine Opiates Screen Neg (NEG) Urine Methadone Screen Neg (NEG) Urine Barbiturates Neg (NEG) Urine Phencyclidine Screen Neg (NEG) Urine Amphetamine/Methamphetamine Neg (NEG) Urine Benzodiazepines Screen Neg (NEG) Urine Cocaine Screen Neg (NEG) Urine Cannabinoids Screen Neg (NEG) Urine Ethyl Alcohol Neg (NEG) White Blood Count 14.3 x10^3/uL (4.0-11.0) Red Blood Count 4.60 x10^6/uL (3.50-5.40) Hemoglobin 14.3 g/dL (12.0-15.5) Hematocrit 42.9 % (36.0-47.0) Mean Corpuscular Volume 93 fL (79-100) Mean Corpuscular Hemoglobin 31 pg (25-35) Mean Corpuscular Hemoglobin Concent 33 g/dL (31-37) Red Cell Distribution Width 13.0 % (11.5-14.5) Platelet Count 370 x10^3/uL (140-400) Neutrophils (%) (Auto) 69 % (31-73) Lymphocytes (%) (Auto) 25 % (24-48) Monocytes (%) (Auto) 5 % (0-9) Eosinophils (%) (Auto) 0 % (0-3) Basophils (%) (Auto) 0 % (0-3) Neutrophils # (Auto) 9.9 x10^3uL (1.8-7.7) Lymphocytes # (Auto) 3.6 x10^3/uL (1.0-4.8) Monocytes # (Auto) 0.7 x10^3/uL (0.0-1.1) Eosinophils # (Auto) 0.1 x10^3/uL (0.0-0.7) Basophils # (Auto) 0.1 x10^3/uL (0.0-0.2) Erythrocyte Sedimentation Rate 11 (0-25) Prothrombin Time 9.4 SEC (9.4-11.4) Prothromb Time International Ratio 0.9 (0.9-1.1) Activated Partial Thromboplast Time 27 SEC (23-33) D-Dimer (Ileana) < 0.19 mg/L (0.00-0.50) Sodium Level 140 mmol/L (136-145) Potassium Level 3.9 mmol/L (3.5-5.1) Chloride Level 99 mmol/L (98-107) Carbon Dioxide Level 29 mmol/L (21-32) Anion Gap 12 (6-14) Blood Urea Nitrogen 5 mg/dL (7-20) Creatinine 0.7 mg/dL (0.6-1.0) Estimated GFR (Cockcroft-Gault) 92.2 Glucose Level 108 mg/dL (70-99) Calcium Level 10.1 mg/dL (8.5-10.1) Magnesium Level 1.9 mg/dL (1.8-2.4) Total Bilirubin 0.3 mg/dL (0.2-1.0) Direct Bilirubin 0.1 mg/dL (0.0-0.2) Aspartate Amino Transf (AST/SGOT) 15 U/L (15-37) Alanine Aminotransferase (ALT/SGPT) 25 U/L (14-59) Alkaline Phosphatase 104 U/L (46-116) Creatine Kinase 60 U/L (26-192) Troponin I Quantitative < 0.017 ng/mL (0-0.055) IK-Zuo-F-Type Natriuretic Peptide 38 pg/mL (0-124) Total Protein 7.3 g/dL (6.4-8.2) Albumin 4.2 g/dL (3.4-5.0) Lipase 76 U/L (94-421) Brief Hospital Course 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 Discharge Information Condition at Discharge: Improved, Stable Disposition/Orders: D/C to Home Dischare Medications Current Medications Sodium Chloride 1,000 ml @ 100 mls/hr Q10H IV Last administered on 02/02/19at 22:56; Admin Dose 100 MLS/HR; Start 02/02/19 at 22:00; Stop 02/03/19 at 01:43; Status DC Ondansetron HCl (Zofran) 8 mg 1X ONCE IV Last administered on 02/02/19at 22:57; Admin Dose 8 MG; Start 02/02/19 at 22:00; Stop 02/02/19 at 22:04; Status DC Active Scripts Active Fiorinal 50-325-40 Mg Capsule (Butalbital/Aspirin/Caffeine) 1 Each Capsule 1 Each PO QID PRN Reported Metformin Hcl 1,000 Mg Tablet 1,000 Mg PO BID Escitalopram Oxalate 20 Mg Tablet 20 Mg PO DAILY Phentermine Hcl 37.5 Mg Capsule 37.5 Mg PO DAILY PRN Klonopin (Clonazepam) 1 Mg Tablet 1 Mg PO PRN PRN Arimidex (Anastrozole) 1 Mg Tablet 1 Mg PO DAILY LAST DOSE GIVEN: DATE: TODAY TIME: AM NEXT DOSE DUE: DATE: TOMORROW TIME: AM Hydrochlorothiazide Tablet (Hydrochlorothiazide) 12.5 Mg Tablet 12.5 Mg PO DAILY LAST DOSE GIVEN: DATE: TODAY TIME: AM NEXT DOSE DUE: DATE: TOMORROW TIME: AM Discharge Summary Visit Information Final Diagnosis Problems Medical Problems: (1) Dizzy Status: Acute Brief Hospital Course Allergies Allergies Coded Allergies Type Severity Reaction Last Updated Verified Cephalosporins Allergy Severe Anaphylaxis 04/19/17 No Penicillins Allergy Severe Shortness of Air 04/19/17 No Sulfa (Sulfonamide Antibiotics) Allergy Severe Anaphylaxis 04/19/17 No bupropion Allergy Mild Anxiety 04/19/17 No sumatriptan Allergy Unknown 04/19/17 Yes Vital Signs Vital Signs Date Time Temp Pulse Resp B/P (MAP) Pulse Ox O2 Delivery O2 Flow Rate FiO2 02/03/19 00:55 64 20 119/70 (86) 99 Room Air 02/02/19 21:30 98.3 Lab Results Laboratory Tests Test 02/02/19 21:02/02/19 22:15 Urine Collection Type Unknown Urine Color Yellow Urine Clarity Clear Urine pH 7.0 Urine Specific Hildreth 1.010 Urine Protein Neg (NEG-TRACE) Urine Glucose (UA) Neg mg/dL (NEG) Urine Ketones (Stick) Neg mg/dL (NEG) Urine Blood Small (NEG) Urine Nitrite Neg (NEG) Urine Bilirubin Neg (NEG) Urine Urobilinogen Dipstick 0.2 mg/dL (0.2 mg/dL) Urine Leukocyte Esterase Neg (NEG) Urine RBC 1-2 /HPF (0-2) Urine WBC Occ /HPF (0-4) Urine Squamous Epithelial Cells Occ /LPF Urine Bacteria 0 /HPF (0-FEW) Urine Opiates Screen Neg (NEG) Urine Methadone Screen Neg (NEG) Urine Barbiturates Neg (NEG) Urine Phencyclidine Screen Neg (NEG) Urine Amphetamine/Methamphetamine Neg (NEG) Urine Benzodiazepines Screen Neg (NEG) Urine Cocaine Screen Neg (NEG) Urine Cannabinoids Screen Neg (NEG) Urine Ethyl Alcohol Neg (NEG) White Blood Count 14.3 x10^3/uL (4.0-11.0) Red Blood Count 4.60 x10^6/uL (3.50-5.40) Hemoglobin 14.3 g/dL (12.0-15.5) Hematocrit 42.9 % (36.0-47.0) Mean Corpuscular Volume 93 fL (79-100) Mean Corpuscular Hemoglobin 31 pg (25-35) Mean Corpuscular Hemoglobin Concent 33 g/dL (31-37) Red Cell Distribution Width 13.0 % (11.5-14.5) Platelet Count 370 x10^3/uL (140-400) Neutrophils (%) (Auto) 69 % (31-73) Lymphocytes (%) (Auto) 25 % (24-48) Monocytes (%) (Auto) 5 % (0-9) Eosinophils (%) (Auto) 0 % (0-3) Basophils (%) (Auto) 0 % (0-3) Neutrophils # (Auto) 9.9 x10^3uL (1.8-7.7) Lymphocytes # (Auto) 3.6 x10^3/uL (1.0-4.8) Monocytes # (Auto) 0.7 x10^3/uL (0.0-1.1) Eosinophils # (Auto) 0.1 x10^3/uL (0.0-0.7) Basophils # (Auto) 0.1 x10^3/uL (0.0-0.2) Erythrocyte Sedimentation Rate 11 (0-25) Prothrombin Time 9.4 SEC (9.4-11.4) Prothromb Time International Ratio 0.9 (0.9-1.1) Activated Partial Thromboplast Time 27 SEC (23-33) D-Dimer (Ileana) < 0.19 mg/L (0.00-0.50) Sodium Level 140 mmol/L (136-145) Potassium Level 3.9 mmol/L (3.5-5.1) Chloride Level 99 mmol/L (98-107) Carbon Dioxide Level 29 mmol/L (21-32) Anion Gap 12 (6-14) Blood Urea Nitrogen 5 mg/dL (7-20) Creatinine 0.7 mg/dL (0.6-1.0) Estimated GFR (Cockcroft-Gault) 92.2 Glucose Level 108 mg/dL (70-99) Calcium Level 10.1 mg/dL (8.5-10.1) Magnesium Level 1.9 mg/dL (1.8-2.4) Total Bilirubin 0.3 mg/dL (0.2-1.0) Direct Bilirubin 0.1 mg/dL (0.0-0.2) Aspartate Amino Transf (AST/SGOT) 15 U/L (15-37) Alanine Aminotransferase (ALT/SGPT) 25 U/L (14-59) Alkaline Phosphatase 104 U/L (46-116) Creatine Kinase 60 U/L (26-192) Troponin I Quantitative < 0.017 ng/mL (0-0.055) MG-Yop-G-Type Natriuretic Peptide 38 pg/mL (0-124) Total Protein 7.3 g/dL (6.4-8.2) Albumin 4.2 g/dL (3.4-5.0) Lipase 76 U/L (73-393) Brief Hospital Course Ms. Hauser is a 43 old female who presented with dizzy complaints. Pt. declines admission. Discharge Information Condition at Discharge: Improved, Stable Disposition/Orders: D/C to Home Dischare Medications Current Medications Sodium Chloride 1,000 ml @ 100 mls/hr Q10H IV Last administered on 02/02/19at 22:56; Admin Dose 100 MLS/HR; Start 02/02/19 at 22:00; Stop 02/03/19 at 01:43; Status DC Ondansetron HCl (Zofran) 8 mg 1X ONCE IV Last administered on 02/02/19at 22:57; Admin Dose 8 MG; Start 02/02/19 at 22:00; Stop 02/02/19 at 22:04; Status DC Active Scripts Active Fiorinal 50-325-40 Mg Capsule (Butalbital/Aspirin/Caffeine) 1 Each Capsule 1 Each PO QID PRN Reported Metformin Hcl 1,000 Mg Tablet 1,000 Mg PO BID Escitalopram Oxalate 20 Mg Tablet 20 Mg PO DAILY Phentermine Hcl 37.5 Mg Capsule 37.5 Mg PO DAILY PRN Klonopin (Clonazepam) 1 Mg Tablet 1 Mg PO PRN PRN Arimidex (Anastrozole) 1 Mg Tablet 1 Mg PO DAILY LAST DOSE GIVEN: DATE: TODAY TIME: AM NEXT DOSE DUE: DATE: TOMORROW TIME: AM Hydrochlorothiazide Tablet (Hydrochlorothiazide) 12.5 Mg Tablet 12.5 Mg PO DAILY LAST DOSE GIVEN: DATE: TODAY TIME: AM NEXT DOSE DUE: DATE: TOMORROW TIME: AM Dragon Disclaimer This chart was dictated in whole or in part using Voice Recognition software in a busy, high-work load, and often noisy Emergency Department environment. It may contain unintended and wholly unrecognized errors or omissions. Dragon Disclaimer This chart was dictated in whole or in part using Voice Recognition software in a busy, high-work load, and often noisy Emergency Department environment. It may contain unintended and wholly unrecognized errors or omissions. OLAYINKA HEREDIA MD Feb 02, 2019 21:31
[2019-02-02 21:54] LABS: BACTERIA,URINE 0 /HPF (0-FEW); BILIRUBIN,URINE NEG (NEG); CLARITY,URINE CLEAR; COLOR,URINE YELLOW; GLUCOSE,URINE NEG (NEG); NITRITE,URINE NEG (NEG); SQUAMOUS EPITHELIAL CELL,UR OCC /LPF; UROBILINOGEN,URINE 0.2 mg/dL (0.2 mg/dL); WBC,URINE OCC /HPF (0-4)
[2019-02-02] MEDS ORDERED: CLON1TAB PO (21:54)
[2019-02-02] MEDS ORDERED: PHEN37.53 PO (21:54)
[2019-02-02] MEDS ORDERED: METF10007 PO (21:54)
[2019-02-02] MEDS ORDERED: ESCITALOPRAM OX20 MG PO (21:54)
[2019-02-02 21:55] LABS: BARBITURATES NEG (NEG); BENZODIAZEPINES NEG (NEG); CANNABINOIDS NEG (NEG); COCAINE NEG (NEG); METHADONE NEG (NEG); OPIATES NEG (NEG); PHENCYCLIDINE NEG (NEG)
[2019-02-02 21:58] LABS: AMPHETAMINE/METHAMPHETAMINE NEG (NEG)
[2019-02-02] MEDS ORDERED: ONDANSETRON PF 4 MG/2 ML VIAL. IV ONE (22:00)
[2019-02-02] MEDS ORDERED: IV NORMAL SALINE 1,000ML 1,000 ML IV SCH (22:00)
[2019-02-02 22:53] LABS: BASO # 0.1 x10^3/uL (0.0-0.2); BASO % 0 % (0-3); EOS # 0.1 x10^3/uL (0.0-0.7); EOS % 0 % (0-3); HEMATOCRIT 42.9 % (36.0-47.0); HEMOGLOBIN 14.3 g/dL (12.0-15.5); LYMPH # 3.6 x10^3/uL (1.0-4.8); LYMPH % 25 % (24-48); MEAN CORPUSCULAR HEMOGLOBIN 31 pg (25-35); MEAN CORPUSCULAR HGB CONC 33 g/dL (31-37); MEAN CORPUSCULAR VOLUME 93 fL (79-100); MONO # 0.7 x10^3/uL (0.0-1.1); MONO % 5 % (0-9); NEUT # 9.9 x10^3uL (1.8-7.7); NEUT % 69 % (31-73); PLATELET COUNT 370 x10^3/uL (140-400); WHITE BLOOD COUNT 14.3 x10^3/uL (4.0-11.0)
[2019-02-02 23:07] LABS: ALBUMIN 4.2 g/dL (3.4-5.0); CALCIUM 10.1 mg/dL (8.5-10.1); CREATININE 0.7 mg/dL (0.6-1.0); DIRECT BILIRUBIN 0.1 mg/dL (0.0-0.2); GFR 92.2; MAGNESIUM 1.9 mg/dL (1.8-2.4); POTASSIUM 3.9 mmol/L (3.5-5.1); TOTAL BILIRUBIN 0.3 mg/dL (0.2-1.0); TOTAL PROTEIN 7.3 g/dL (6.4-8.2)
--- NOTE | 2019-02-02 23:14 | RAD ---
EXAM: CT Head without IV contrast CLINICAL HISTORY: Dizziness COMPARISON: 08/27/2016 TECHNIQUE: Routine CT of the head without contrast. Soft tissues and bone windows were reviewed. PQRS compliance statement - One or more of the following individualized dose reduction techniques were utilized for this study: 1. Automated exposure control 2. Adjustment of the mA and/or kV according to patient size 3. Use of iterative reconstruction technique FINDINGS: There is no evidence of hemorrhage, mass or extra-axial fluid collection. Galvin-white differentiation is maintained with no evidence of edema. There is no mass effect or shift of the intracranial structures. The ventricles, basilar cisterns and cortical sulci are normal in size and configuration for the patients stated age. The cerebellum and brainstem are unremarkable. The calvarium demonstrates no evidence of fracture or focal lesion. There is normal aeration of the visualized paranasal sinuses and mastoid air cells. The visualized portions of the orbits are normal. IMPRESSION: No evidence for acute intracranial process. Electronically signed by: Beto Arevalo MD (02/02/2019 11:12 PM) [facility]
[2019-02-02 23:58] LABS: SEDIMENTATION RATE 11 (0-25)
[2019-02-03 00:55] VITALS: BP 119/70
--- NOTE | 2019-02-03 08:17 | RAD ---
PA and lateral chest. HISTORY: Dizzy PA and lateral views were taken of the chest. Lungs are clear. Heart is normal in size. There is no pleural effusion. There is slight scoliosis. IMPRESSION: 1. No acute chest disease. Electronically signed by: Adin Tena MD (02/03/2019 8:14 AM) [facility]
--- NOTE | 2019-02-04 06:23 | EKG ---
[address] [address] Test Date: 2019-02-02 Test Time: 21:46:14 Pat Name: TAI TITUS Department: Room: Gender: F Treatment Specialist: : 1975 Requested By: OLAYINKA HEREDIA Order Number: [id number] Reading MD: Measurements Intervals [place] Rate: 64 P: -163 CO: 140 QRS: -150 QRSD: 88 T: -176 QT: 398 QTc: 415 Interpretive Statements SUPRAVENTRICULAR RHYTHM ABNORMAL RIGHT SUPERIOR AXIS DEVIATION QRS(T) CONTOUR ABNORMALITY CONSIDER ANTEROSEPTAL MYOCARDIAL DAMAGE T ABNORMALITY IN HIGH LATERAL LEADS INFERIOR LEADS ABNORMAL ECG RI6.01 No previous ECG available for comparison
== END 2019-02-03 00:59 | disposition home or self-care (01) ==
LOC: ER 21:21
DX: R42 Dizziness and giddiness (principal); D72.829 Elevated white blood cell count, unspecified; G43.809 Other migraine, not intractable, without status migrainosus; E11.9 Type 2 diabetes mellitus without complications; I10 Essential (primary) hypertension; Z88.1 Allergy status to other antibiotic agents; Z88.0 Allergy status to penicillin; Z88.2 Allergy status to sulfonamides; Z88.4 Allergy status to anesthetic agent; Z88.8 Allergy status to other drugs, medicaments and biological substances
CPT/HCPCS: 36415; 70450; 71046; 80048; 80076; 80307; 81001; 82550; 83690; 83735; 83880; 84443; 84484; 85025; 85379; 85610; 85651; 85730; 96361; 96374; 99285; J2405; 93005; J7030

== ENCOUNTER 2019-03-04 21:00 | Emergency (ER) | payer OTHER ==
[~2019-03-04] VITALS: Ht 167.6 cm; Wt 84.7 kg
[~2019-03-04 21:00] MED LIST changes: +CLON1TAB PO; +ESCITALOPRAM OX20 MG PO; +METF10007 PO; +PHEN37.53 PO
[2019-03-04] MEDS ORDERED: MECLIZINE 12.5 MG TABLET. PO STA (21:34)
[2019-03-04] MEDS ORDERED: ONDANSETRON PF 4 MG/2 ML VIAL. IV ONE (21:45)
[2019-03-04] MEDS ORDERED: IV NORMAL SALINE 1,000ML 1,000 ML IV ONE (21:45)
[2019-03-04 21:49] LABS: BASO # 0.1 x10^3/uL (0.0-0.2); BASO % 1 % (0-3); EOS # 0.2 x10^3/uL (0.0-0.7); EOS % 2 % (0-3); HEMATOCRIT 42.3 % (36.0-47.0); HEMOGLOBIN 14.3 g/dL (12.0-15.5); LYMPH # 4.1 x10^3/uL (1.0-4.8); LYMPH % 36 % (24-48); MEAN CORPUSCULAR HEMOGLOBIN 31 pg (25-35); MEAN CORPUSCULAR HGB CONC 34 g/dL (31-37); MEAN CORPUSCULAR VOLUME 92 fL (79-100); MONO # 0.7 x10^3/uL (0.0-1.1); MONO % 6 % (0-9); NEUT # 6.4 x10^3uL (1.8-7.7); NEUT % 56 % (31-73); PLATELET COUNT 359 x10^3/uL (140-400); RED BLOOD COUNT 4.61 x10^6/uL (3.50-5.40); RED CELL DISTRIBUTION WIDTH 13.4 % (11.5-14.5); WHITE BLOOD COUNT 11.5 x10^3/uL (4.0-11.0)
[2019-03-04 22:03] LABS: ALBUMIN 4.1 g/dL (3.4-5.0); ALBUMIN/GLOBULIN RATIO 1.5 (1.0-1.7); CALCIUM 9.9 mg/dL (8.5-10.1); CREATININE 0.7 mg/dL (0.6-1.0); GFR 92.2; POTASSIUM 4.1 mmol/L (3.5-5.1); TOTAL BILIRUBIN 0.1 mg/dL (0.2-1.0); TOTAL PROTEIN 6.9 g/dL (6.4-8.2)
[2019-03-04 22:06] LABS: BILIRUBIN,URINE NEG (NEG); CLARITY,URINE CLEAR; COLOR,URINE STRAW; GLUCOSE,URINE NEG (NEG); NITRITE,URINE NEG (NEG); UROBILINOGEN,URINE 0.2 mg/dL (0.2 mg/dL)
[2019-03-04 22:07] LABS: BACTERIA,URINE 0 /HPF (0-FEW); RBC,URINE OCC /HPF (0-2); SQUAMOUS EPITHELIAL CELL,UR OCC /LPF; WBC,URINE OCC /HPF (0-4)
--- NOTE | 2019-03-04 22:25 | PHYS DOC ---
Past History Past Medical History: Cancer, Diabetes, Hypertension Past Surgical History: Cholecystectomy, Other Smoking: Non-smoker Alcohol Use: None Drug Use: None Adult General Chief Complaint Chief Complaint: DIZZY/LIGHT HEADED HPI HPI Patient is a 43-year-old female presenting with dizziness. She says when she closes her eyes it's worse she feels like she just went to [place] of fun This to her while she was driving to work she went over to the ER at [facility] she waited 2 hours and didn't get seen so she came over here for evaluation no diplopia mild nausea no chest pain really no headache just feeling this sensation as noted above. Of note she did have 3 small [address] on the way to work she has a history of diabetes Review of Systems Review of Systems Constitutional: Denies fever or chills [] Eyes: Denies change in visual acuity, redness, or eye pain [] HENT: Denies nasal congestion or sore throat [] Musculoskeletal: Denies back pain or joint pain [] Integument: Denies rash or skin lesions [] Neurologic: All other systems were reviewed and found to be within normal limits, except as documented in this note. Current Medications Current Medications Current Medications Medications (Trade) Dose Ordered Sig/Gerry Start Time Stop Time Status Last Admin Dose Admin Meclizine HCl (Antivert) 25 mg 1X STAT 03/04/19 21:34 03/04/19 21:38 DC 03/04/19 21:52 25 MG Ondansetron HCl (Zofran) 4 mg 1X ONCE 03/04/19 21:45 03/04/19 21:46 DC 03/04/19 21:52 4 MG Sodium Chloride 1,000 ml @ 1,000 mls/hr 1X ONCE 03/04/19 21:45 03/04/19 22:44 03/04/19 21:52 1,000 MLS/HR Allergies Allergies Allergies Coded Allergies Type Severity Reaction Last Updated Verified Cephalosporins Allergy Severe Anaphylaxis 04/19/17 No Penicillins Allergy Severe Shortness of Air 04/19/17 No Sulfa (Sulfonamide Antibiotics) Allergy Severe Anaphylaxis 04/19/17 No bupropion Allergy Mild Anxiety 04/19/17 No sumatriptan Allergy Unknown 04/19/17 Yes Physical Exam Physical Exam Constitutional: Well developed, well nourished, no acute distress, non-toxic appearance. [] HENT: Normocephalic, atraumatic, bilateral external ears normal, oropharynx moist, no oral exudates, nose normal. [] Eyes: PERRLA, EOMI, conjunctiva normal, no discharge. [] Neck: Normal range of motion, no tenderness, supple, no stridor. [] Cardiovascular:Heart rate regular rhythm, no murmur [] Lungs & Thorax: Bilateral breath sounds clear to auscultation [] Abdomen: Bowel sounds normal, soft, no tenderness, no masses, no pulsatile masses. [] Skin: Warm, dry, no erythema, no rash. [] Back: No tenderness, no CVA tenderness. [] Extremities: No tenderness, no cyanosis, no clubbing, ROM intact, no edema. [] Neurologic: Alert and oriented X 3, normal motor function, normal sensory function, no focal deficits noted. []Dvcdxt-bcrp-ybujdo intact no dysmetric renal nerves are intact there is no nystagmus appreciated Psychologic: Affect normal, judgement normal, mood normal. [] Current Patient Data Vital Signs Vital Signs Date Time Temp Pulse Resp B/P (MAP) Pulse Ox O2 Delivery O2 Flow Rate FiO2 03/04/19 21:00 98.6 55 18 99 Room Air Lab Results Laboratory Tests Test 03/04/19 21:15 03/04/19 21:30 03/04/19 21:37 Urine Collection Type Unknown Urine Color Straw Urine Clarity Clear Urine pH 7.0 Urine Specific Center 1.010 Urine Protein Neg (NEG-TRACE) Urine Glucose (UA) Neg mg/dL (NEG) Urine Ketones (Stick) Neg mg/dL (NEG) Urine Blood Trace (NEG) Urine Nitrite Neg (NEG) Urine Bilirubin Neg (NEG) Urine Urobilinogen Dipstick 0.2 mg/dL (0.2 mg/dL) Urine Leukocyte Esterase Neg (NEG) Urine RBC Occ /HPF (0-2) Urine WBC Occ /HPF (0-4) Urine Squamous Epithelial Cells Occ /LPF Urine Bacteria 0 /HPF (0-FEW) Sodium Level 143 mmol/L (136-145) Potassium Level 4.1 mmol/L (3.5-5.1) Chloride Level 103 mmol/L (98-107) Carbon Dioxide Level 32 mmol/L (21-32) Anion Gap 8 (6-14) Blood Urea Nitrogen 8 mg/dL (7-20) Creatinine 0.7 mg/dL (0.6-1.0) Estimated GFR (Cockcroft-Gault) 92.2 BUN/Creatinine Ratio 11 (6-20) Glucose Level 117 mg/dL (70-99) H Calcium Level 9.9 mg/dL (8.5-10.1) Total Bilirubin 0.1 mg/dL (0.2-1.0) L Aspartate Amino Transferase (AST) 18 U/L (15-37) Alanine Aminotransferase (ALT) 23 U/L (14-59) Alkaline Phosphatase 106 U/L (46-116) Troponin I Quantitative < 0.017 ng/mL (0-0.055) Total Protein 6.9 g/dL (6.4-8.2) Albumin 4.1 g/dL (3.4-5.0) Albumin/Globulin Ratio 1.5 (1.0-1.7) White Blood Count 11.5 x10^3/uL (4.0-11.0) H Red Blood Count 4.61 x10^6/uL (3.50-5.40) Hemoglobin 14.3 g/dL (12.0-15.5) Hematocrit 42.3 % (36.0-47.0) Mean Corpuscular Volume 92 fL (79-100) Mean Corpuscular Hemoglobin 31 pg (25-35) Mean Corpuscular Hemoglobin Concent 34 g/dL (31-37) Red Cell Distribution Width 13.4 % (11.5-14.5) Platelet Count 359 x10^3/uL (140-400) Neutrophils (%) (Auto) 56 % (31-73) Lymphocytes (%) (Auto) 36 % (24-48) Monocytes (%) (Auto) 6 % (0-9) Eosinophils (%) (Auto) 2 % (0-3) Basophils (%) (Auto) 1 % (0-3) Neutrophils # (Auto) 6.4 x10^3uL (1.8-7.7) Lymphocytes # (Auto) 4.1 x10^3/uL (1.0-4.8) Monocytes # (Auto) 0.7 x10^3/uL (0.0-1.1) Eosinophils # (Auto) 0.2 x10^3/uL (0.0-0.7) Basophils # (Auto) 0.1 x10^3/uL (0.0-0.2) Glucose (Fingerstick) 108 mg/dL (70-99) H EKG EKG []G shows some nonspecific anterior flattening V2 V3 no ischemia no STEMI rate 55 QTC 425 Radiology/Procedures Radiology/Procedures [] Course & Med Decision Making Course & Med Decision Making Pertinent Labs and Imaging studies reviewed. (See chart for details) []Orthostatics were essentially positive in the emergency room patient's blood pressure did drop down to the mid 90s when she stood up we gave her a liter of fluid meclizine and Zofran she said she actually did feel somewhat better. No objective neurologic findings labwork is stable patient is discharged in stable condition diagnosed dizziness likely peripheral vertigo Luna Disclaimer Dragon Disclaimer This electronic medical record was generated, in whole or in part, using a voice recognition dictation system. Departure Departure: Impression: Primary Impression: Dizziness Disposition: 01 HOME, SELF-CARE Condition: STABLE Patient Instructions: Lulú, [id number] JOHNNY FISCHER MD Mar 04, 2019 22:25
[2019-03-04 22:40] VITALS: BP 119/59
--- NOTE | 2019-03-05 06:34 | EKG ---
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
== END 2019-03-04 22:40 | disposition home or self-care (01) ==
LOC: ER 21:00
DX: R42 Dizziness and giddiness (principal); E11.9 Type 2 diabetes mellitus without complications; I10 Essential (primary) hypertension; Z88.0 Allergy status to penicillin; Z88.1 Allergy status to other antibiotic agents; Z88.2 Allergy status to sulfonamides; Z88.8 Allergy status to other drugs, medicaments and biological substances
CPT/HCPCS: 36415; 80053; 81001; 82947; 84484; 85025; 93005; 96361; 96374; 99285; J2405; J8597; J7030

== ENCOUNTER 2019-03-19 08:45 | Emergency (ER) | payer OTHER ==
[~2019-03-19] VITALS: Ht 167.6 cm; Wt 75.0 kg
--- NOTE | 2019-03-19 09:15 | PHYS DOC ---
Past History Past Medical History: Cancer, Diabetes, Hypertension Past Surgical History: Cholecystectomy, Other Smoking: Non-smoker Alcohol Use: None Drug Use: None Adult General Chief Complaint Chief Complaint: HEADACHE HPI HPI 43-year-old female presents to the emergency department with complaints of headache. Patient states started around 4:30 this morning. Initially minor, she states the migraine feels somewhat her previous headaches in the past however this is on the right side versus the left. She has had some nausea. She states that light worsens or symptoms. Review of Systems Review of Systems Constitutional: Denies fever or chills [] Eyes: Right eye blurry vision however similar to previous migraine headaches HENT: Denies nasal congestion or sore throat [] Respiratory: Denies cough or shortness of breath [] Cardiovascular: No additional information not addressed in HPI [] GI: Denies abdominal pain, nausea, vomiting, bloody stools or diarrhea [] Musculoskeletal: Denies back pain or joint pain [] Integument: Denies rash or skin lesions [] Neurologic: Headache All other systems were reviewed and found to be within normal limits, except as documented in this note. Current Medications Current Medications Current Medications Medications (Trade) Dose Ordered Sig/Gerry Start Time Stop Time Status Last Admin Dose Admin Diphenhydramine HCl (Benadryl) 50 mg 1X ONCE 03/19/19 09:15 03/19/19 09:16 UNV Ketorolac Tromethamine (Toradol 30mg Vial) 30 mg 1X ONCE 03/19/19 09:15 03/19/19 09:16 UNV Metoclopramide HCl (Reglan Vial) 10 mg 1X ONCE 03/19/19 09:15 03/19/19 09:16 UNV Allergies Allergies Allergies Coded Allergies Type Severity Reaction Last Updated Verified Cephalosporins Allergy Severe Anaphylaxis 04/19/17 No Penicillins Allergy Severe Shortness of Air 04/19/17 No Sulfa (Sulfonamide Antibiotics) Allergy Severe Anaphylaxis 04/19/17 No bupropion Allergy Mild Anxiety 04/19/17 No sumatriptan Allergy Unknown 04/19/17 Yes Physical Exam Physical Exam Constitutional: Well developed, well nourished, mild distress, nontoxic- appearing HENT: Normocephalic, atraumatic, bilateral external ears normal, oropharynx moist, no oral exudates, nose normal. [] Eyes: PERRLA, EOMI, conjunctiva normal, no discharge. [] Neck: Normal range of motion, no tenderness, supple, no stridor. [] Cardiovascular:Heart rate regular rhythm, no murmur [] Lungs & Thorax: Bilateral breath sounds clear to auscultation [] Abdomen: Bowel sounds normal, soft, no tenderness, no masses, no pulsatile masses. [] Skin: Warm, dry, no erythema, no rash. [] Extremities: No tenderness, no cyanosis, no clubbing, ROM intact, no edema. [] Neurologic: Alert and oriented X 3, no focal deficits noted. [] Psychologic: Affect normal, judgement normal, mood normal. [] Current Patient Data Vital Signs Temperature (Fahrenheit): * 98.1 degrees F (97.6-99.5) Patient Temperature * 98.1 degrees F (97.5-99.5) Temperature Source * Oral Blood Pressure Systolic * 121 mm Hg (100-140) Blood Pressure Diastolic * 70 mm Hg (60-100) Blood Pressure Mean * 87 mm Hg Pulse Rate * 63 beats per minute (60-90) EKG EKG [] Radiology/Procedures Radiology/Procedures [] Course & Med Decision Making Course & Med Decision Making Pertinent Labs and Imaging studies reviewed. (See chart for details) Patient lives with headache, sore to previous migraines. Sensitive to light. Nausea on exam. Patient provided with Reglan 10, Benadryl 50, Toradol 30. Patient with improved headache, states she like to be discharged home. Return precautions provided. No imaging given recurrent similar presentation. Dragon Disclaimer Dragon Disclaimer This electronic medical record was generated, in whole or in part, using a voice recognition dictation system. Departure Departure: Impression: Primary Impression: Migraine headache Additional Impression: Nausea Disposition: HOME, SELF-CARE Condition: IMPROVED Referrals: NISHI DIMAS MD (PCP) Patient Instructions: Recurrent Migraine Headache Problem Qualifiers Primary Impression: Migraine headache Migraine type: without aura Status migrainosus presence: without status migrainosus Intractability: not intractable Qualified Codes: G43.009 - Migraine without aura, not intractable, without status migrainosus AHSAN SLAUGHTER MD Mar 19, 2019 09:15
[2019-03-19] MEDS ORDERED: diphenhydrAMINE 50 MG/ML VIAL IVP ONE (09:30)
[2019-03-19] MEDS ORDERED: KETOROLAC 30 MG/ML VIAL. IV ONE (09:30)
[2019-03-19] MEDS ORDERED: METOCLOPRAMIDE HCL 10 MG/2 ML VIAL. IV ONE (09:30)
[2019-03-19 10:21] VITALS: BP 98/58
== END 2019-03-19 10:30 | disposition home or self-care (01) ==
LOC: ER 08:45
DX: G43.009 Migraine without aura, not intractable, without status migrainosus (principal); E11.9 Type 2 diabetes mellitus without complications; I10 Essential (primary) hypertension; Z88.0 Allergy status to penicillin; Z88.1 Allergy status to other antibiotic agents; Z88.2 Allergy status to sulfonamides; Z88.8 Allergy status to other drugs, medicaments and biological substances
CPT/HCPCS: 96374; 96375; 99284; J1200; J1885; J2765

== ENCOUNTER 2019-04-07 18:23 | Emergency (ER) | payer OTHER ==
[2019-04-07 18:33] VITALS: BP 115/68
--- NOTE | 2019-04-07 19:10 | RAD ---
FOOT LEFT 3V History: Injury to the toes, ran into a sewing machine Comparison: None. Findings: 3 views of the left foot are submitted. As only seen on lateral view, there is some faint lucency at the volar aspect of the third middle phalanx extending to the articular surface of the proximal interphalangeal joint although there are overlying soft tissues in this region limiting evaluation. Impression: 1. There is faint lucency at the volar aspect of the third middle phalanx as only seen on lateral view possibly a nondisplaced fracture with intra-articular extent to the fourth proximal interphalangeal joint. However accurate evaluation is limited due to overlying soft tissues. Electronically signed by: Beck Medina MD (04/07/2019 7:07 PM) [facility]
--- NOTE | 2019-04-07 19:15 | PHYS DOC ---
Past History Past Medical History: Cancer, Diabetes, Hypertension Past Surgical History: Cancer Surgery, Hysterectomy Additional Past Surgical Histo: Mastectomy Smoking: Non-smoker Alcohol Use: None Drug Use: None Adult General Chief Complaint Chief Complaint: TOE PROBLEM HPI HPI 43-year-old female presents with left foot third and fourth digit toe pain. The patient was walking around her house today barefoot smacked her toes into a sewing machine. She thought she just stopped her toe, but it was hurting worse 30 minutes later. The patient attempted to baby it most of the afternoon, but the pain continued to increase in it is now very painful put any weight on this foot. The patient denies any other injuries or complaints. She has previously fractured other toes in both feet. Review of Systems Review of Systems Constitutional: Denies fever or chills [] Eyes: Denies change in visual acuity, redness, or eye pain [] HENT: Denies nasal congestion or sore throat [] Respiratory: Denies cough or shortness of breath [] Cardiovascular: No additional information not addressed in HPI [] GI: Denies abdominal pain, nausea, vomiting, bloody stools or diarrhea [] : Denies dysuria or hematuria [] Musculoskeletal: Pain in the left third and fourth toes[] Integument: Denies rash or skin lesions [] Neurologic: Denies headache, focal weakness or sensory changes [] Endocrine: Denies polyuria or polydipsia [] All other systems were reviewed and found to be within normal limits, except as documented in this note. Allergies Allergies Allergies Coded Allergies Type Severity Reaction Last Updated Verified Cephalosporins Allergy Severe Anaphylaxis 04/19/17 No Penicillins Allergy Severe Shortness of Air 04/19/17 No Sulfa (Sulfonamide Antibiotics) Allergy Severe Anaphylaxis 04/19/17 No bupropion Allergy Mild Anxiety 04/19/17 No sumatriptan Allergy Unknown 04/19/17 Yes Physical Exam Physical Exam Constitutional: Well developed, well nourished, no acute distress, non-toxic appearance. [] HENT: Normocephalic, atraumatic, bilateral external ears normal, oropharynx moist, no oral exudates, nose normal. [] Eyes: PERRLA, EOMI, conjunctiva normal, no discharge. [] Neck: Normal range of motion, no tenderness, supple, no stridor. [] Cardiovascular:Heart rate regular rhythm, no murmur [] Lungs & Thorax: Bilateral breath sounds clear to auscultation [] Abdomen: Bowel sounds normal, soft, no tenderness, no masses, no pulsatile masses. [] Skin: Warm, dry, no erythema, no rash. [] Back: No tenderness, no CVA tenderness. [] Extremities: No tenderness, no cyanosis, no clubbing, ROM intact, no edema. [] Neurologic: Alert and oriented X 3, normal motor function, normal sensory function, no focal deficits noted. [] Psychologic: Affect normal, judgement normal, mood normal. [] Current Patient Data Vital Signs Vital Signs Date Time Temp Pulse Resp B/P (MAP) Pulse Ox O2 Delivery O2 Flow Rate FiO2 04/07/19 18:33 97.8 76 18 97 Room Air EKG EKG [] Radiology/Procedures Radiology/Procedures [] Impressions: FOOT LEFT 3V History: Injury to the toes, ran into a sewing machine Comparison: None. Findings: 3 views of the left foot are submitted. As only seen on lateral view, there is some faint lucency at the volar aspect of the third middle phalanx extending to the articular surface of the proximal interphalangeal joint although there are overlying soft tissues in this region limiting evaluation. Impression: 1. There is faint lucency at the volar aspect of the third middle phalanx as only seen on lateral view possibly a nondisplaced fracture with intra-articular extent to the fourth proximal interphalangeal joint. However accurate evaluation is limited due to overlying soft tissues. Electronically signed by: Luis Alberto Richards MD (04/07/2019 7:07 PM) [facility] DICTATED AND SIGNED BY: LUIS ALBERTO RICHARDS MD DATE: 04/07/191906 CC: MIREYA GIRON DO; NISHI DIMAS MD ~ Course & Med Decision Making Course & Med Decision Making Pertinent Labs and Imaging studies reviewed. (See chart for details) Patient does appear to have a fracture of the middle phalanx of the third toe. See official read for further details. We will mikhail tape the patient's third and fourth toes to the 2nd and 5th toes separately. I we'll also put her in an orthopedic shoe. She is stable for discharge at this time. I will give her short course of Dixon 5/325 for pain. [] Dragon Disclaimer Dragon Disclaimer This electronic medical record was generated, in whole or in part, using a voice recognition dictation system. Departure Departure: Impression: Primary Impression: Fracture of left toe Disposition: HOME, SELF-CARE Condition: STABLE Referrals: NISHI DIMAS MD (PCP) Patient Instructions: Mikhail Taping of Toes, Toe Fracture with Rehab[facility] Scripts Hydrocodone Bit/Acetaminophen (NORCO 5-325 TABLET) 1 Each Tablet 1 TAB PO PRN Q6HRS PRN for PAIN, #10 TAB 0 Refills Prov: MIREYA GIRON DO 04/07/19 Problem Qualifiers Primary Impression: Fracture of left toe Encounter type: initial encounter Toe: lesser toe Fracture type: closed Phalanx: middle Fracture alignment: nondisplaced Qualified Codes: S92.525A - Nondisplaced fracture of middle phalanx of left lesser toe(s), i nitial encounter for closed fracture MIREYA GIRON DO Apr 07, 2019 19:15
[2019-04-07] MEDS ORDERED: HYDROcodone/APAP 5/325MG 1 TAB TABLET PO ONE (19:30)
[2019-04-07] MEDS ORDERED: HYDR-3165 PO (19:30)
== END 2019-04-07 19:54 | disposition home or self-care (01) ==
LOC: ER 18:23
DX: S92.525A Nondisplaced fracture of middle phalanx of left lesser toe(s), initial encounter for closed fracture (principal); E11.9 Type 2 diabetes mellitus without complications; I10 Essential (primary) hypertension; Z88.1 Allergy status to other antibiotic agents; Z88.0 Allergy status to penicillin; Z88.2 Allergy status to sulfonamides; Z88.8 Allergy status to other drugs, medicaments and biological substances; W22.8XXA Striking against or struck by other objects, initial encounter; Y93.01 Activity, walking, marching and hiking; Y99.8 Other external cause status; Y92.098 Other place in other non-institutional residence as the place of occurrence of the external cause
CPT/HCPCS: 73630; 99284

== ENCOUNTER 2019-04-19 21:27 | Emergency (ER) | payer OTHER ==
[~2019-04-19] VITALS: Ht 167.6 cm; Wt 74.8 kg
[~2019-04-19 21:27] MED LIST changes: +HYDR-3165 PO
--- NOTE | 2019-04-19 21:56 | ED.ADGEN ---
Past History Past Medical History: Cancer, Diabetes, Hypertension Past Surgical History: Cancer Surgery, Hysterectomy, Other Additional Past Surgical Histo: Mastectomy Smoking: Non-smoker Alcohol Use: None Drug Use: None Adult General Chief Complaint Chief Complaint ".. I ve been exposed to flu.. However I did get a flu shot on .. and maybe it just a reaction to the shot... My site is warm... 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 who presents with above hx and complaints of myalgia and arthralgia and malaise. She has Exposure to flu. Patient did receive a flu vaccination on and symptoms started after the vaccination. Injection site is somewhat warm and tender in left deltoid. Patient does have significant medical history with left breast msplsz-[id number]-[id number] ductal. Patient had bilateral mastectomy ovary removal. Patient is 3 years out from treatment, is currently on oral Remidex. No recent travel. Patient also has had some recent dysrhythmias and under evaluation with cardiology. Review of Systems Review of Systems Constitutional: Subjective fever or chills [] Eyes: Denies change in visual acuity, redness, or eye pain [] HENT: Has nasal congestion and sore throat [] Respiratory: Denies cough or shortness of breath [] Cardiovascular: No additional information not addressed in HPI [] GI: Denies abdominal pain, nausea, vomiting, bloody stools or diarrhea [] : Denies dysuria or hematuria [] Musculoskeletal: Myalgias and arthralgia Integument: Denies rash or skin lesions [] Neurologic: Denies headache, focal weakness or sensory changes [] Endocrine: Denies polyuria or polydipsia [] All other systems were reviewed and found to be within normal limits, except as documented in this note. Family History Family History Flu positive family members Current Medications Current Medications See nursing for home meds Allergies Allergies Allergies Coded Allergies Type Severity Reaction Last Updated Verified Cephalosporins Allergy Severe Anaphylaxis 04/19/17 No Penicillins Allergy Severe Shortness of Air 04/19/17 No Sulfa (Sulfonamide Antibiotics) Allergy Severe Anaphylaxis 04/19/17 No bupropion Allergy Mild Anxiety 04/19/17 No sumatriptan Allergy Unknown 04/19/17 Yes Physical Exam Physical Exam Constitutional: Well developed, well nourished, moderate acute distress, non- toxic appearance. [] HENT: Normocephalic, atraumatic, bilateral external ears normal, oropharynx moist, mild injection of pharynx, no oral exudates, nose injected turbinates and clear rhinorrhea Eyes: PERRLA, EOMI, conjunctiva normal, no discharge. [] Neck: Normal range of motion, no tenderness, supple, no stridor. [] Cardiovascular:Heart rate regular rhythm, no murmur [] Lungs & Thorax: Bilateral breath sounds with apex on auscultation [Has]bilateral mastectomy scars. Right subclavian port scar. Currently wearing a heart monitor. Abdomen: Bowel sounds normal, soft, no tenderness, no masses, no pulsatile masses. [] Scar Skin: Warm, dry, no erythema, no rash. [] Back: No tenderness, no CVA tenderness. [] Extremities: No tenderness, no cyanosis, no clubbing, ROM intact, no edema. [] Neurologic: Alert and oriented X 3, normal motor function, normal sensory function, no focal deficits noted. [] Psychologic: Affect anxious, judgement normal, mood normal. [] Current Patient Data Vital Signs Vital Signs Date Time Temp Pulse Resp B/P (MAP) Pulse Ox O2 Delivery O2 Flow Rate FiO2 04/19/19 21:39 99.9 90 20 98 Room Air Lab Results Laboratory Tests Test 04/19/19 21:35 04/19/19 22:31 Influenza Type A (Rapid) Negative (NEGATIVE) Influenza Type B (Rapid) Negative (NEGATIVE) Group A Streptococcus Rapid Negative (NEGATIVE) EKG EKG [] Radiology/Procedures Radiology/Procedures [] Course & Med Decision Making Course & Med Decision Making Pertinent Labs and Imaging studies reviewed. (See chart for details) Patient's strep and flu were negative. In spite of the negative flu will write for Tamiflu in the event she is early in her presentation. However suspect this may be just a vaccination response. Patient take Tylenol and ibuprofen for discomfort. Follow-up primary care. Patient return of any concerns. [] Final Impression Final Impression 1. Viral syndrome[] Dragon Disclaimer Dragon Disclaimer This electronic medical record was generated, in whole or in part, using a voice recognition dictation system. Dragon Disclaimer This chart was dictated in whole or in part using Voice Recognition software in a busy, high-work load, and often noisy Emergency Department environment. It may contain unintended and wholly unrecognized errors or omissions. OLAYINKA HEREDIA MD Apr 19, 2019 21:56
[2019-04-19 22:13] LABS: INFLUENZA A PATIENT NEGATIVE (NEGATIVE); INFLUENZA B PATIENT NEGATIVE (NEGATIVE)
[2019-04-19] MEDS ORDERED: OSEL75CA PO (22:44)
== END 2019-04-19 22:50 | disposition home or self-care (01) ==
LOC: ER 21:27
DX: B34.9 Viral infection, unspecified (principal); E11.9 Type 2 diabetes mellitus without complications; I10 Essential (primary) hypertension; Z88.0 Allergy status to penicillin; Z88.1 Allergy status to other antibiotic agents; Z88.2 Allergy status to sulfonamides; Z88.8 Allergy status to other drugs, medicaments and biological substances
CPT/HCPCS: 87070; 87804; 87880; 99284

== ENCOUNTER 2020-02-11 07:20 | Emergency (ER) | payer OTHER ==
[~2020-02-11] VITALS: Ht 167.6 cm; Wt 79.0 kg
[~2020-02-11 07:20] MED LIST changes: +OSEL75CA PO
--- NOTE | 2020-02-11 07:49 | PHYS DOC ---
Past History Past Medical History: Cancer, Diabetes, Hypertension, Migraines Past Surgical History: Cancer Surgery, Colectomy, Hysterectomy Additional Past Surgical Histo: Mastectomy Smoking: Non-smoker Alcohol Use: None Drug Use: None Adult General Chief Complaint Chief Complaint: HEADACHE [facility] HPI Patient is a 44-year-old female who presents for migraine headache Onset was this morning with no inciting factor or event. Patient has history of migraine headaches, is established with a neurologist in outpatient in his previously been on Botox with good relief; however, has not been receiving this during COVID pandemic Patient has history of requiring ED visits for abortive migraine therapy with last episode occurring greater than 6 months ago. Patient reports this feels like past episodes. Denies this being the worst headache of her life, denies thunderclap type headache She is here today requesting "the cocktail" Review of Systems Review of Systems Fourteen body systems of review of systems have been reviewed. See HPI for pertinent positives and negative responses, other ramirez all other systems are negative, non-pertinent or non-contributory Allergies Allergies Allergies Coded Allergies Type Severity Reaction Last Updated Verified Cephalosporins Allergy Severe Anaphylaxis 04/19/17 No Penicillins Allergy Severe Shortness of Air 04/19/17 No Sulfa (Sulfonamide Antibiotics) Allergy Severe Anaphylaxis 04/19/17 No bupropion Allergy Mild Anxiety 04/19/17 No sumatriptan Allergy Unknown 04/19/17 Yes Physical Exam Physical Exam Constitutional: Well developed, well nourished, mild distress, non-toxic appearance. Appears uncomfortable in a dark room due to pain [] HENT: Normocephalic, atraumatic, bilateral external ears normal, oropharynx mo ist, no oral exudates, nose normal. [] Eyes: PERRLA, EOMI, conjunctiva normal, no discharge. [] Neck: Normal range of motion, no tenderness, supple, no stridor. [] Cardiovascular:Heart rate regular rhythm, no murmur [] Lungs & Thorax: Bilateral breath sounds clear to auscultation [] Abdomen: Bowel sounds normal, soft, no tenderness, no masses, no pulsatile masses. [] Skin: Warm, dry, no erythema, no rash. [] Back: No tenderness, no CVA tenderness. [] Extremities: No tenderness, no cyanosis, no clubbing, ROM intact, no edema. [] Neurologic: Alert and oriented X 3, normal motor function, normal sensory function, no focal deficits noted. [] Psychologic: Affect normal, judgement normal, mood normal. [] Current Patient Data Vital Signs Vital Signs Date Time Temp Pulse Resp B/P (MAP) Pulse Ox O2 Delivery O2 Flow Rate FiO2 02/11/20 07:24 97.4 65 16 184/94 (124) Room Air EKG EKG [] Radiology/Procedures Radiology/Procedures [] Course & Med Decision Making Course & Med Decision Making Patient seen on initial ED arrival Patient hypertensive otherwise vital signs stable Comprehensive history and physical exam non-concerning for emergent pathology requiring further work-up or surgical intervention IV fluids, Compazine, Benadryl, dexamethasone, and Toradol were administered with significant relief of patient's migraine type headache Discussed alternative diagnoses such as symptomatic hypertension but patient admits the reading was likely due to pain as she took her morning hypertension medications and is usually well controlled Also discussed potential life-threatening diagnoses such as subarachnoid hemorrhage but joint decision to defer imaging or other studies at this time given that characteristics of presenting headache are similar to previous migraines Overall, patient symptoms vastly improved throughout ED course and patient was ready for discharge home Ongoing supportive care, close PCP follow-up and outpatient neurologist follow- up advised Strict return precautions discussed with good understanding by patient, all questions and concerns addressed prior to departure Luna Disclaimer Luna Disclaimer This electronic medical record was generated, in whole or in part, using a voice recognition dictation system. Departure Departure: Impression: Primary Impression: Migraine headache Additional Impression: Hypertension Disposition: 01 HOME/RESIDENCE PRIOR TO ADM Condition: IMPROVED Referrals: NISHI DIMAS MD (PCP) Patient Instructions: Recurrent Migraine Headache Justification of Admission: Justification of Admission: Justification of Admission Dx: N/A Problem Qualifiers TOMASZ GERMAN DO Feb 11, 2020 07:49
[2020-02-11] MEDS ORDERED: DEXAMETHASONE SOD PHOS 10 MG/ML VIAL. IV ONE (08:00)
[2020-02-11] MEDS ORDERED: diphenhydrAMINE 50 MG/ML VIAL IVP ONE (08:00)
[2020-02-11] MEDS ORDERED: PROCHLORPERAZINE 10 MG/2 ML VIAL. IV ONE (08:00)
[2020-02-11] MEDS ORDERED: IV NORMAL SALINE 1,000ML 1,000 ML IV ONE (08:00)
[2020-02-11] MEDS ORDERED: KETOROLAC 15 MG/ML VIAL. IVP ONE (08:15)
[2020-02-11 09:44] VITALS: BP 134/76
== END 2020-02-11 09:44 | disposition home or self-care (01) ==
LOC: ER 07:20
DX: G43.909 Migraine, unspecified, not intractable, without status migrainosus (principal); I10 Essential (primary) hypertension; E11.9 Type 2 diabetes mellitus without complications; Z88.1 Allergy status to other antibiotic agents; Z88.0 Allergy status to penicillin; Z88.2 Allergy status to sulfonamides; Z88.8 Allergy status to other drugs, medicaments and biological substances
CPT/HCPCS: 96361; 96374; 96375; 99284; J0780; J1100; J1200; J1885; J7030

== ENCOUNTER 2021-01-14 17:32 | Emergency (ER) | payer OTHER ==
[~2021-01-14] VITALS: Ht 167.6 cm; Wt 79.0 kg
--- NOTE | 2021-01-14 17:44 | PHYS DOC ---
Past History Past Medical History: Cancer, Diabetes, Hypertension, Migraines Past Surgical History: Cancer Surgery, Colectomy, Hysterectomy Additional Past Surgical Histo: Mastectomy Smoking: Non-smoker Alcohol Use: None Drug Use: None General Adult EDM: Chief Complaint: HEADACHE HPI: HPI: ".. I having one of my migraines.. 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 Pt denies any travel. No specific ill contacts. No history of trauma. No history immunosuppression. Does have a history of hypertension diabetes, migraines. Patient normally follows with Dr. Dimas. Review of Systems: Review of Systems: Constitutional: Denies fever or chills Eyes: Denies change in visual acuity HENT: Denies nasal congestion or sore throat Respiratory: Denies cough or shortness of breath Cardiovascular: Denies chest pain or edema GI: Denies abdominal pain, nausea, vomiting, bloody stools or diarrhea : Denies dysuria Musculoskeletal: Denies back pain or joint pain Integument: Denies rash Neurologic: Complains of migraine headache. Denies, focal weakness or sensory changes Endocrine: Denies polyuria or polydipsia Lymphatic: Denies swollen glands Psychiatric: Denies depression or anxiety Family History: Family History: Noncontributory to presentation Current Medications: Current Meds: See nursing for home meds Allergies: Allergies: Allergies Coded Allergies Type Severity Reaction Last Updated Verified Cephalosporins Allergy Severe Anaphylaxis 01/14/21 No Penicillins Allergy Severe Shortness of Air 01/14/21 No Sulfa (Sulfonamide Antibiotics) Allergy Severe Anaphylaxis 01/14/21 No bupropion Allergy Mild Anxiety 01/14/21 No sumatriptan Allergy Unknown 01/14/21 Yes Physical Exam: PE: Constitutional: Moderate acute distress, non-toxic appearance. [] HENT: Normocephalic, atraumatic, bilateral external ears normal, oropharynx moist, no oral exudates, nose normal. [] Eyes: PERRLA, EOMI, conjunctiva normal, no discharge. [] Neck: Normal range of motion, no tenderness, supple, no stridor. [] Cardiovascular:Heart rate regular rhythm, no murmur [] Lungs & Thorax: Bilateral breath sounds equal at apex on auscultation [] Abdomen: Bowel sounds normal, soft, no tenderness, no masses, no pulsatile masses. [] Skin: Warm, dry, no erythema, no rash. [] Back: No tenderness, no CVA tenderness. [] Extremities: No tenderness, no cyanosis, no clubbing, ROM intact, no edema. [] No cording appreciated Neurologic: Alert and oriented X 3, moves all extremities on request., distal sensory function, no focal deficits noted. DTRs +2. Food Quality Technician equal. No drift. Right-hand dominant. Psychologic: Affect normal, judgement normal, mood normal. [] EKG: EKG: [] Radiology/Procedures: Radiology/Procedures: Deferred by patient [] Heart Score: C/O Chest Pain: N/A Risk Factors: Risk Factors: DM, Current or recent (<one month) smoker, HTN, HLP, family history of CAD, obesity. Risk Scores: Score 0 - 3: 2.5% MACE over next 6 weeks - Discharge Home Score 4 - 6: 20.3% MACE over next 6 weeks - Admit for Clinical Observation Score 7 - 10: 72.7% MACE over next 6 weeks - Early Invasive Strategies Course & Med Decision Making: Course & Med Decision Making Pertinent Labs and Imaging studies reviewed. (See chart for details) Patient reports resolution of her symptoms. Requesting discharge at 1930 hrs. Patient take Zofran 8 mg at 4 times a day for nausea and vomiting. Follow-up primary care. Return if any concerns. Patient declined further work-up at this time. Impression: 1. Migraine BUSCH [] Dragon Disclaimer: Dragdaxa Disclaimer: This electronic medical record was generated, in whole or in part, using a voice recognition dictation system. Departure Departure: Referrals: NISHI DIMAS MD (PCP) Scripts Ondansetron Hcl (ZOFRAN) 4 Mg Tablet 8 MG PO QIDPRN PRN for NAUSEA/VOMITING, #30 TAB Prov: OLAYINKA HEREDIA MD 01/14/21 Luna Disclaimer This chart was dictated in whole or in part using Voice Recognition software in a busy, high-work load, and often noisy Emergency Department environment. It may contain unintended and wholly unrecognized errors or omissions. OLAYINKA HEREDIA MD Jan 14, 2021 17:44
[2021-01-14] MEDS ORDERED: KETOROLAC 30 MG/ML VIAL. ONE (17:56)
[2021-01-14] MEDS ORDERED: diphenhydrAMINE 50 MG/ML VIAL ONE (17:56)
[2021-01-14] MEDS ORDERED: ONDA4TAB7 PO (17:58)
[2021-01-14] MEDS ORDERED: KETOROLAC 30 MG/ML VIAL. IVP ONE (18:00)
[2021-01-14] MEDS ORDERED: ONDANSETRON PF 4 MG/2 ML VIAL. IVP ONE (18:00)
[2021-01-14] MEDS ORDERED: diphenhydrAMINE 50 MG/ML VIAL IVP ONE (18:00)
[2021-01-14 19:14] VITALS: BP 121/53
== END 2021-01-14 19:45 | disposition home or self-care (01) ==
LOC: ER 17:32
DX: G43.909 Migraine, unspecified, not intractable, without status migrainosus (principal); E11.9 Type 2 diabetes mellitus without complications; I10 Essential (primary) hypertension; Z88.1 Allergy status to other antibiotic agents; Z88.0 Allergy status to penicillin; Z88.2 Allergy status to sulfonamides; Z88.8 Allergy status to other drugs, medicaments and biological substances
CPT/HCPCS: 96374; 96375; 99284; J1200; J1885; J2405; J3010

== ENCOUNTER 2021-02-04 07:01 | Emergency (ER) | payer OTHER ==
[~2021-02-04] VITALS: Ht 167.6 cm; Wt 80.7 kg
[~2021-02-04 07:01] MED LIST changes: +ONDA4TAB7 PO
[2021-02-04 07:39] VITALS: BP 160/92
[2021-02-04] MEDS ORDERED: METOCLOPRAMIDE HCL 10 MG/2 ML VIAL. IVP ONE (07:45)
[2021-02-04] MEDS ORDERED: IV NORMAL SALINE 1,000ML 1,000 ML IV ONE (07:45)
[2021-02-04] MEDS ORDERED: KETOROLAC 30 MG/ML VIAL. IVP ONE (07:45)
[2021-02-04] MEDS ORDERED: diphenhydrAMINE 50 MG/ML VIAL IVP ONE (07:45)
--- NOTE | 2021-02-04 07:52 | PHYS DOC ---
Past History Past Medical History: Cancer, Diabetes, Hypertension, Migraines Past Surgical History: Cancer Surgery, Colectomy, Hysterectomy, Oophorectomy Additional Past Surgical Histo: Mastectomy; sinus surgery; knee surgery Smoking: Non-smoker Alcohol Use: None Drug Use: None General Adult EDM: Chief Complaint: HEADACHE HPI: HPI: 45-year-old female presents with headache. She began to have a headache last night that started in the occipital region and is radiating forward. The patient has a history of migraines but they are typically not the left front of her head. She has had occipital headaches in the past when she was dehydrated. Patient admits that she was [place] and is likely somewhat dehydrated. She denies any falls or trauma. No vomiting. No other symptoms of illness. No one else in her house is ill. Review of Systems: Review of Systems: Constitutional: Denies fever or chills Eyes: Denies change in visual acuity HENT: Denies nasal congestion or sore throat Respiratory: Denies cough or shortness of breath Cardiovascular: Denies chest pain or edema GI: Denies abdominal pain, nausea, vomiting, bloody stools or diarrhea : Denies dysuria Musculoskeletal: Denies back pain or joint pain Integument: Denies rash Neurologic: Headache. Denies focal weakness or sensory changes Endocrine: Denies polyuria or polydipsia Lymphatic: Denies swollen glands Psychiatric: Denies depression or anxiety Current Medications: Current Meds: Current Medications Medications (Trade) Dose Ordered Sig/Gerry Start Time Stop Time Status Last Admin Dose Admin Diphenhydramine HCl (Benadryl) 25 mg 1X ONCE 02/04/21 07:45 02/04/21 07:46 UNV Ketorolac Tromethamine (Toradol 30mg Vial) 30 mg 1X ONCE 02/04/21 07:45 02/04/21 07:46 UNV Metoclopramide HCl (Reglan Vial) 10 mg 1X ONCE 02/04/21 07:45 02/04/21 07:46 UNV Sodium Chloride 1,000 ml @ 1,000 mls/hr 1X ONCE 02/04/21 07:45 02/04/21 08:44 UNV Allergies: Allergies: Allergies Coded Allergies Type Severity Reaction Last Updated Verified Cephalosporins Allergy Severe Anaphylaxis 01/14/21 No Penicillins Allergy Severe Shortness of Air 01/14/21 No Sulfa (Sulfonamide Antibiotics) Allergy Severe Anaphylaxis 01/14/21 No bupropion Allergy Mild Anxiety 01/14/21 No sumatriptan Allergy Unknown 01/14/21 Yes Physical Exam: PE: Constitutional: Well developed, well nourished, no acute distress, non-toxic appearance. [] HENT: Normocephalic, atraumatic, bilateral external ears normal, oropharynx moist, no oral exudates, nose normal. [] Eyes: PERRLA, EOMI, conjunctiva normal, no discharge. [] Neck: Normal range of motion, no tenderness, supple, no stridor. [] Cardiovascular: Heart rate regular rhythm, no murmur [] Lungs & Thorax: Bilateral breath sounds clear to auscultation [] Abdomen: Bowel sounds normal, soft, no tenderness, no masses, no pulsatile masses. [] Skin: Warm, dry, no erythema, no rash. [] Back: No tenderness, no CVA tenderness. [] Extremities: No tenderness, no cyanosis, no clubbing, ROM intact, no edema. [] Neurologic: Alert and oriented X 3, normal motor function, normal sensory function, no focal deficits noted. [] Psychologic: Affect normal, judgement normal, mood normal. [] EKG: EKG: [] Radiology/Procedures: Radiology/Procedures: [] Heart Score: C/O Chest Pain: N/A Risk Factors: Risk Factors: DM, Current or recent (<one month) smoker, HTN, HLP, family history of CAD, obesity. Risk Scores: Score 0 - 3: 2.5% MACE over next 6 weeks - Discharge Home Score 4 - 6: 20.3% MACE over next 6 weeks - Admit for Clinical Observation Score 7 - 10: 72.7% MACE over next 6 weeks - Early Invasive Strategies Course & Med Decision Making: Course & Med Decision Making Pertinent Labs and Imaging studies reviewed. (See chart for details) The patient's labs are unremarkable. For her headache I have given her 1 L normal saline, 10 mg of Reglan, 25 mg of Benadryl, 30 mg of Toradol. She is feeling much better. She is stable for discharge at this time. [] Dragon Disclaimer: Dragon Disclaimer: This electronic medical record was generated, in whole or in part, using a voice recognition dictation system. Departure Departure: Impression: Primary Impression: Headache Qualified Codes: R51.9 - Headache, unspecified Disposition: 01 HOME / SELF CARE / HOMELESS Condition: IMPROVED Referrals: NISHI DIMAS MD (PCP) Patient Instructions: Migraine Headache, [id number] MIREYA GIRON DO Feb 04, 2021 07:51
[2021-02-04] MEDS ORDERED: KETOROLAC 30 MG/ML VIAL. ONE (07:54)
[2021-02-04] MEDS ORDERED: METOCLOPRAMIDE HCL 10 MG/2 ML VIAL. ONE (07:54)
[2021-02-04 08:23] LABS: BASO # 0.1 x10^3/uL (0.0-0.2); BASO % 1 % (0-3); EOS # 0.2 x10^3/uL (0.0-0.7); EOS % 2 % (0-3); HEMATOCRIT 39.1 % (36.0-47.0); HEMOGLOBIN 13.2 g/dL (12.0-15.5); LYMPH # 3.4 x10^3/uL (1.0-4.8); LYMPH % 39 % (24-48); MEAN CORPUSCULAR HEMOGLOBIN 31 pg (25-35); MEAN CORPUSCULAR HGB CONC 34 g/dL (31-37); MEAN CORPUSCULAR VOLUME 93 fL (79-100); MONO # 0.6 x10^3/uL (0.0-1.1); MONO % 7 % (0-9); NEUT # 4.4 x10^3uL (1.8-7.7); NEUT % 51 % (31-73); PLATELET COUNT 306 x10^3/uL (140-400); RED BLOOD COUNT 4.23 x10^6/uL (3.50-5.40); WHITE BLOOD COUNT 8.7 x10^3/uL (4.0-11.0)
[2021-02-04 08:30] LABS: CALCIUM 8.3 mg/dL (8.5-10.1); CREATININE 0.6 mg/dL (0.6-1.0); GFR 109.1; POTASSIUM 3.4 mmol/L (3.5-5.1)
[2021-02-04 08:38] LABS: ALBUMIN 3.5 g/dL (3.4-5.0); ALBUMIN/GLOBULIN RATIO 1.3 (1.0-1.7); TOTAL BILIRUBIN 0.3 mg/dL (0.2-1.0); TOTAL PROTEIN 6.2 g/dL (6.4-8.2)
[2021-02-04 08:45] LABS: BILIRUBIN,URINE NEG (NEG); CLARITY,URINE CLEAR; COLOR,URINE YELLOW; GLUCOSE,URINE NEG (NEG)
[2021-02-04 08:46] LABS: BACTERIA,URINE 0 /HPF (0-FEW); NITRITE,URINE NEG (NEG); SQUAMOUS EPITHELIAL CELL,UR MOD /LPF; UROBILINOGEN,URINE 0.2 mg/dL (0.2 mg/dL)
== END 2021-02-04 10:12 | disposition home or self-care (01) ==
LOC: ER 07:01
DX: G43.909 Migraine, unspecified, not intractable, without status migrainosus (principal); I10 Essential (primary) hypertension; Z88.0 Allergy status to penicillin; Z88.2 Allergy status to sulfonamides; Z88.1 Allergy status to other antibiotic agents; Z90.710 Acquired absence of both cervix and uterus
CPT/HCPCS: 36415; 80053; 81001; 85025; 96361; 96374; 96375; 99284; J1200; J1885; J2765; J7030

== ENCOUNTER 2021-10-24 03:25 | Emergency (ER) | payer OTHER ==
[~2021-10-24] VITALS: Ht 167.6 cm; Wt 80.7 kg
[~2021-10-24 03:25] MED LIST changes: -PHEN15CA2 PO; +PHEN15CA6 PO
[2021-10-24 04:04] VITALS: BP 151/89
[2021-10-24] MEDS ORDERED: PROCHLORPERAZINE 10 MG/2 ML VIAL. IM ONE (04:15)
[2021-10-24] MEDS ORDERED: KETOROLAC 30 MG/ML VIAL. IM ONE (04:15)
[2021-10-24] MEDS ORDERED: diphenhydrAMINE HCL 25 MG CAPSULE PO ONE (04:15)
[2021-10-24] MEDS ORDERED: MORPHINE SULFATE 4 MG/ML DISP.SYRIN. IM ONE (05:15)
[2021-10-24] MEDS ORDERED: ONDANSETRON ODT 4 MG TAB.RAPDIS PO ONE (05:15)
--- NOTE | 2021-10-24 05:22 | PHYS DOC ---
Past History Past Medical History: Cancer, Diabetes, Hypertension, Migraines Past Surgical History: Cancer Surgery, Colectomy, Hysterectomy, Oophorectomy Additional Past Surgical Histo: Mastectomy; sinus surgery; knee surgery Smoking: Non-smoker Alcohol Use: None Drug Use: None Adult General Chief Complaint Chief Complaint: HEADACHE HPI HPI Patient is a 45-year-old female with a past medical history significant for migraine headaches who presents with migraine headache chief complaint. States that she has had the headache/migraine off and on over the last couple of days. States they will sometimes last as long but can usually get them under control with her Fioricet, Tylenol and ibuprofen. States that they did help a little bit but have not got rid of it. Denies any recent traumas, travels, illnesses, fevers, neck pain, chest pain, shortness of breath, abdominal pain, nausea, vomiting, diarrhea. Denies any numbness/weakness/tingling. Denies any trouble sitting, standing or walking. States that she has had similar migraines in the past but has not had one this bad. Review of Systems Review of Systems Review of systems otherwise unremarkable except noted in HPI Current Medications Current Medications Current Medications Medications (Trade) Dose Ordered Sig/Gerry Start Time Stop Time Status Last Admin Dose Admin Diphenhydramine HCl (Benadryl) 50 mg 1X ONCE 10/24/21 04:15 10/24/21 04:16 DC 10/24/21 04:16 50 MG Ketorolac Tromethamine (Toradol 30mg Vial) 30 mg 1X ONCE 10/24/21 04:15 10/24/21 04:16 DC 10/24/21 04:16 30 MG Prochlorperazine Edisylate (Compazine) 10 mg 1X ONCE 10/24/21 04:15 10/24/21 04:16 DC 10/24/21 04:16 10 MG Allergies Allergies Allergies Coded Allergies Type Severity Reaction Last Updated Verified Cephalosporins Allergy Severe Anaphylaxis 01/14/21 No Penicillins Allergy Severe Shortness of Air 01/14/21 No Sulfa (Sulfonamide Antibiotics) Allergy Severe Anaphylaxis 01/14/21 No bupropion Allergy Mild Anxiety 01/14/21 No sumatriptan Allergy Unknown 01/14/21 Yes Physical Exam Physical Exam Constitutional: Well developed, well nourished, no acute distress, non-toxic appearance. [] HENT: Normocephalic, atraumatic, bilateral external ears normal, oropharynx moist, no oral exudates, nose normal. [] Eyes: PERRLA, EOMI, conjunctiva normal, no discharge. [] Neck: Normal range of motion, no tenderness, supple, no stridor. [] Cardiovascular:Heart rate regular rhythm, no murmur [] Lungs & Thorax: Bilateral breath sounds clear to auscultation [] Abdomen: Bowel sounds normal, soft, no tenderness, no masses, no pulsatile masses. [] Skin: Warm, dry, no erythema, no rash. [] Back: No tenderness, no CVA tenderness. [] Extremities: No tenderness, no cyanosis, no clubbing, ROM intact, no edema. [] Neurologic: Alert and oriented X 3, normal motor function, normal sensory function, able to sit, stand and walk without issue, no focal deficits noted. [] Psychologic: Affect normal, judgement normal, mood normal. [] Current Patient Data Vital Signs Vital Signs Date Time Temp Pulse Resp B/P (MAP) Pulse Ox O2 Delivery O2 Flow Rate FiO2 10/24/21 04:04 98.1 70 18 151/89 (109) 99 Room Air EKG EKG [] Radiology/Procedures Radiology/Procedures [] Heart Score C/O Chest Pain: No Risk Factors: Risk Factors: DM, Current or recent (<one month) smoker, HTN, HLP, family history of CAD, obesity. Risk Scores: Risk Factors: DM, Current or recent (<one month) smoker, HTN, HLP, family history of CAD, obesity. Course & Med Decision Making Course & Med Decision Making Patient is a 45-year-old female who presents with a chief complaint of migraine headache Vital signs notable for hypertension. Physical exam noted above. Given medica tions for symptom control On reassessment patient stated she was feeling better, able to take p.o. and was ready to go home. Discussed symptom management at home of migraines. Advised to follow-up on Monday with primary care physician. Gave return precautions to the ED. Patient very grateful, verbalized understanding and agreed with plan of discharge. [] Dragon Disclaimer Dragon Disclaimer This electronic medical record was generated, in whole or in part, using a voice recognition dictation system. Departure Departure: Impression: Primary Impression: Migraine headache Disposition: HOME / SELF CARE / HOMELESS Condition: STABLE Referrals: NISHI DIMAS MD (PCP) Patient Instructions: Migraine Headache Additional Instructions: Thank you for coming into the emergency department tonight and allowing us to take care of you. Please read the attached information carefully to go over things we discussed. As we discussed you can take your Fioricet and other medications as needed. Please add Benadryl as well as this can also help. Please stay well-hydrated and try to get some sleep. Please follow-up on Monday with your primary care physician update on your ED visit and set up a follow-up as needed. Please come back with new or concerning symptoms as we discussed. DARLINE SOTOMAYOR MD Oct 24, 2021 05:22
[2021-10-24] MEDS ORDERED: ACETAMINOPHEN/CODEINE 300/30MG 4TABLET STARTPACK. PO ONE (05:30)
== END 2021-10-24 05:48 | disposition home or self-care (01) ==
LOC: ER 03:25
DX: G43.909 Migraine, unspecified, not intractable, without status migrainosus (principal); E11.9 Type 2 diabetes mellitus without complications; I10 Essential (primary) hypertension; Z88.1 Allergy status to other antibiotic agents; Z88.0 Allergy status to penicillin; Z88.2 Allergy status to sulfonamides; Z88.8 Allergy status to other drugs, medicaments and biological substances
CPT/HCPCS: 96372; 99284; J0780; J1885; J2270; Q0162; Q0163